=== PATIENT | female | born 1980 | race Caucasian/White ===

== ENCOUNTER 2019-02-18 13:58 | Emergency (ER) | payer OTHER, SELFPAY ==
[2019-02-18 14:01] VITALS: BP 106/82; PULSE 135; RESP 16; O2SAT 97
--- NOTE | 2019-02-18 14:17 | ED_ITS ---
HPI - Nausea/Vomiting/Diarrhea General Chief complaint: Nausea/Vomiting/Diarrhea Stated complaint: UNABLE TO STOP VOMITING Time Seen by Provider: 02/18/19 14:08 Source: patient Mode of arrival: Ambulatory Limitations: no limitations History of Present Illness HPI Narrative: Patient is a 38-year-old female with history of celiac disease presenting with vomiting and diarrhea ongoing since 8:30 last night. She has b een unable to hold anything down. She may has had 1 episode of bright red blood per rectum but typically it's not bloody she is not vomiting blood. She does have some abdominal cramping. She feels dizzy and lightheaded when she stands up. She is noted be tachycardic in the ED. she is not febrile no other sick contacts. MD complaint: nausea, vomiting and diarrhea Onset (ago): hour(s) Description of Vomiting: watery Description of Diarrhea: watery Associated Abdominal Pain: Yes Location of pain: diffuse Related Data Home Medications Medication Instructions Recorded Confirmed Vitamin D3 1 cap PO DAILY 02/18/19 02/18/19 Previous Rx's Medication Instructions Recorded ondansetron 4 mg PO Q8H PRN #10 tab 02/18/19 Allergies Allergy/AdvReac Type Severity Reaction Status Date / Time No Known Drug Allergies Allergy Verified 02/18/19 14:17 Review of Systems Review of Systems Narrative: GENERAL: Denies chills, fatigue, malaise, fever, sweats, travel HEENT: Denies sinus pain, ear pain, sore throat, difficulty swallowing, neck pain RESPIRATORY: Denies dyspnea, cough, wheezing, hemoptysis, sputum. CARDIOVASCULAR:+ dizzy Denies chest pain, palpitations, orthopnea, edema GASTROINTESTINAL: See HPI : Denies dysuria, frequency, incontinence, hematuria, urinary retention, flank pain. MUSCULOSKELETAL: Denies weakness, joint pain, or bony pain SKIN: No rash, no erythema, no pruritus NEUROLOGIC: Denies weakness, dizziness, headache, numbness, change in speech, confusion PSYCHIATRIC: No concerning psychosocial issues. 12 point review of systems is negative except for those stated above and HPI Patient History Medical History Celiac disease (Acute) Social History Smoking Status: Never smoker Smoking Status: Never smoker Exam Initial Vital Signs Initial Vital Signs: Vital Signs Pulse Rate 135 H 02/18/19 14:01 Respiratory Rate 16 02/18/19 14:01 Blood Pressure 106/82 02/18/19 14:01 Pulse Oximetry 97 02/18/19 14:01 GENERAL: Well-appearing, well-nourished and in no acute distress. HEENT: Head atraumatic,EOMI, pupils reactive, face symmetric, dry mucous membranes CARDIOVASCULAR: Tachycardia, regular rhythm no murmur RESPIRATORY: Breath sounds equal bilaterally, no wheezes rales or rhonchi. ABDOMEN: Soft, diffuse tenderness, no guarding no rebound no localization EXTREMITIES: Normal range of motion, no clubbing or edema. Neurovascularly intact NEUROLOGICAL: Alert and oriented x4.Normal gait and speech. Cranial nerves II through XII grossly intact. SKIN: Warm, dry, no laceration, no petechiae, no rashes or lesions. Course Orders Ordered: ED Orders 02/18/19 14:10 Complete Blood Count AUTO DIFF Stat Comprehensive Metabolic Panel Stat Lipase Stat Partial Thromboplastin Time Stat Prothrombin Time INR Stat 02/18/19 14:16 Flu test [Influenza A & B (PCR)] Stat 02/18/19 15:52 EKG-12 Lead Stat Discontinued Medications Sodium Chloride (Normal Saline 0.9%) 1,000 mls @ 1,000 mls/hr IV BOLUS ONE Stop: 02/18/19 15:13 Last Infusion: 02/18/19 15:24 Dose: 0 mls/hr Documented by: Admin: 02/18/19 14:18 Dose: 1,000 mls/hr Documented by: JASPER Ketorolac Tromethamine (Toradol) 30 mg IV NOW ONE Stop: 02/18/19 14:42 Last Admin: 02/18/19 14:46 Dose: 30 mg Documented by: JASPER Ondansetron HCl (Zofran) 4 mg IV NOW ONE Stop: 02/18/19 14:19 Last Admin: 02/18/19 14:22 Dose: 4 mg Documented by: JASPER Pantoprazole Sodium (Protonix) 40 mg IV NOW ONE Stop: 02/18/19 14:42 Last Admin: 02/18/19 14:46 Dose: 40 mg Documented by: JASPER Vital Signs Vital signs: Vital Signs - 8 hr 02/18/19 14:01 02/18/19 14:37 Pulse Rate 135 H 114 H Respiratory Rate 16 14 Blood Pressure 106/82 Blood Pressure [Right Arm] 100/77 Pulse Oximetry 97 100 MDM - Nausea/Vomiting/Diarrhea Lab Data Attestation: I reviewed the patient's lab results. Result diagrams: 02/18/19 14:10 02/18/19 14:10 Labs: Lab Results 02/18/19 02/18/19 02/18/19 Range/Units 14:10 14:10 14:10 WBC 10.9 (4.5-11.0) X10^3/uL RBC 5.11 (4.0-5.2) X10^6/uL Hgb 15.8 (12.0-16.0) g/dL Hct 44.8 (36-46) % MCV 87.7 (80-100) fL MCH 31.0 (26-34) PG MCHC 35.3 (30-36) % RDW 12.9 (11.6-14.8) % Plt Count 234 (150-400) X10^3/uL Neut % (Auto) 89.8 H (50-75) % Lymph % (Auto) 5.6 L (25-40) % [place] % (Auto) 4.4 (3-14) % Eos % (Auto) 0.0 L (2-4) % Baso % (Auto) 0.2 (0-2) % Neut # (Auto) 9800 H (4401-5016) /uL Lymph # (Auto) 600 L (2409-6008) /uL [place] # (Auto) 500 (0-900) /uL Eos # (Auto) 0 (0-450) /uL Baso # (Auto) 0 (0-100) /uL PT 14.1 H (10.1-12.7) SECONDS INR 1.2 (0.9-1.3) APTT 28 (26.4-36.2) SECONDS Sodium 137 (137-145) mmol/L Potassium 3.7 (3.4-5.1) mmol/L Chloride 103 (98-107) mmol/L Carbon Dioxide 20 L (22-32) mmol/L BUN 13 (7-17) mg/dL Creatinine 0.90 (0.52-1.04) mg/dL Estimated GFR > 60.0 (>60) mL/min BUN/Creatinine Ratio 14.4 (6-22) Glucose 127 H (70-100) mg/dL Calcium 8.7 (8.4-10.2) mg/dL Total Bilirubin 1.2 (0.2-1.3) mg/dL AST 29 (14-36) IU/L ALT 26 (<35) IU/L Alkaline Phosphatase 43 (38-126) U/L Total Protein 8.2 (6.3-8.2) g/dL Albumin 4.9 (3.5-5.0) g/dL Globulin 3.3 (1.7-4.1) g/dL Albumin/Globulin Ratio 1.5 (1.0-2.8) Lipase 43 (23-300) U/L Influenza A (RT-PCR) (NEGATIVE) Influenza B (RT-PCR) (NEGATIVE) 02/18/19 Range/Units 14:16 WBC (4.5-11.0) X10^3/uL RBC (4.0-5.2) X10^6/uL Hgb (12.0-16.0) g/dL Hct (36-46) % MCV (80-100) fL MCH (26-34) PG MCHC (30-36) % RDW (11.6-14.8) % Plt Count (150-400) X10^3/uL Neut % (Auto) (50-75) % Lymph % (Auto) (25-40) % [place] % (Auto) (3-14) % Eos % (Auto) (2-4) % Baso % (Auto) (0-2) % Neut # (Auto) (3979-2216) /uL Lymph # (Auto) (2399-6501) /uL [place] # (Auto) (0-900) /uL Eos # (Auto) (0-450) /uL Baso # (Auto) (0-100) /uL PT (10.1-12.7) SECONDS INR (0.9-1.3) APTT (26.4-36.2) SECONDS Sodium (137-145) mmol/L Potassium (3.4-5.1) mmol/L Chloride (98-107) mmol/L Carbon Dioxide (22-32) mmol/L BUN (7-17) mg/dL Creatinine (0.52-1.04) mg/dL Estimated GFR (>60) mL/min BUN/Creatinine Ratio (6-22) Glucose (70-100) mg/dL Calcium (8.4-10.2) mg/dL Total Bilirubin (0.2-1.3) mg/dL AST (14-36) IU/L ALT (<35) IU/L Alkaline Phosphatase (38-126) U/L Total Protein (6.3-8.2) g/dL Albumin (3.5-5.0) g/dL Globulin (1.7-4.1) g/dL Albumin/Globulin Ratio (1.0-2.8) Lipase (23-300) U/L Influenza A (RT-PCR) Flu a negative (NEGATIVE) Influenza B (RT-PCR) Flu b negative (NEGATIVE) MDM Narrative Medical decision making narrative: Patient's heart rate decreased to 98 she is tolerating oral fluids overall appears well not significantly dehydrated. This is likely gastroenteritis. At this time I've educated her on oral rehydration. Discharge Plan Departure Patient Disposition: Home Clinical Impression: Gastroenteritis Discharge Date/Time: 02/18/19 16:18 Instructions: DI for Viral Gastroenteritis -- Adult Activity Restrictions/Additional Instructions: 1) You have been diagnosed with gastroenteritis 2) What to do: Drink frequent but small amounts of fluids. I recommend Gatorade or a Gatorade-like product, as it has small amounts of sugar and salts that improve fluid retention. 3) Take medications as directed Zofran 4 mg every 8 hours if needed for nausea or vomiting 4) Follow up with your primary care provider in 2-3 days [and follow up with ortho, urology etc] 5) Return to ER if you should have any new or worsening symptoms such as, unable to hold down fluids despite use of anti-nausea medications and the small volume oral rehydration strategy. Prescriptions: New ondansetron 4 mg tablet,disintegrating 4 mg PO Q8H PRN (Reason: nausea and vomiting) Qty: 10 RF: 0 No Action Vitamin D3 1 cap PO DAILY RF: 0
[2019-02-18] MEDS: SODIUM CHLORIDE 0.9% 1,000 ML 1000 ML IV (14:18)
[2019-02-18 14:20] LABS: Add Manual Diff / Slide Review NO; Basophils Absolute Auto 0 /uL (0-100); Basophils Percent Auto 0.2 % (0-2); Eosinophils Absolute Auto 0 /uL (0-450); Hematocrit 44.8 % (36-46); Hemoglobin 15.8 g/dL (12.0-16.0); Lymphocytes Absolute Auto 600 /uL (1100-4500); Lymphocytes Percent Auto 5.6 % (25-40); Mean Corpuscular HGB Conc 35.3 % (30-36); Mean Corpuscular Volume 87.7 fL (80-100); Monocytes Absolute Auto 500 /uL (0-900); Monocytes Percent Auto 4.4 % (3-14); Neutrophils Absolute Auto 9800 /uL (1500-7000); Neutrophils Percent Auto 89.8 % (50-75); Platelet Count 234 X10^3/uL (150-400); Red Blood Cell Count 5.11 X10^6/uL (4.0-5.2); Red Cell Distribution Width 12.9 % (11.6-14.8); White Blood Cell Count 10.9 X10^3/uL (4.5-11.0)
[2019-02-18] MEDS: ONDANSETRON 4 MG/2 ML INJ IV (14:22)
[2019-02-18 14:23] LABS: INR 1.2 (0.9-1.3); Prothrombin Time 14.1 SECONDS (10.1-12.7)
[2019-02-18 14:26] LABS: PTT Partial Thromboplastin Tim 28 SECONDS (26.4-36.2)
--- NOTE | 2019-02-18 14:29 | PC.NURSE ---
pt reports last sandie she ate a sandwich shortly after started having vomiting and diarrhea. about 12 bouts of each.
[2019-02-18 14:31] LABS: Alanine Aminotransferase 26 IU/L (<35); Albumin 4.9 g/dL (3.5-5.0); Albumin Globulin Ratio 1.5 (1.0-2.8); Alkaline Phosphatase 43 U/L (38-126); Aspartate Aminotransferase 29 IU/L (14-36); BUN Creatinine Ratio 14.4 (6-22); Bilirubin Total 1.2 mg/dL (0.2-1.3); Blood Urea Nitrogen 13 mg/dL (7-17); Calcium 8.7 mg/dL (8.4-10.2); Carbon Dioxide 20 mmol/L (22-32); Chloride 103 mmol/L (98-107); Estimated Glomerular Filt Rate > 60.0 mL/min (>60); Globulin 3.3 g/dL (1.7-4.1); Glucose 127 mg/dL (70-100); HEMOLYSIS < 15 (0-50); Lipase 43 U/L (23-300); Potassium 3.7 mmol/L (3.4-5.1); Sodium 137 mmol/L (137-145); Total Protein 8.2 g/dL (6.3-8.2)
[2019-02-18 14:37] VITALS: BP 100/77; PULSE 114; RESP 14; O2SAT 100
[2019-02-18] MEDS: KETOROLAC 60 MG/2 ML VIAL 30 MG IV (14:46)
[2019-02-18] MEDS: PANTOPRAZOLE 40 MG VIAL IV (14:46)
[2019-02-18 14:57] LABS: Influenza A - CEPHEID Flu A NEGATIVE (NEGATIVE); Influenza B - CEPHEID Flu B NEGATIVE (NEGATIVE)
== END 2019-02-18 16:18 | disposition home or self-care (01) ==
PROVIDERS: Emergency Provider Emergency Medicine
DX: K52.9 Noninfective gastroenteritis and colitis, unspecified (principal); R00.0 Tachycardia, unspecified; K90.0 Celiac disease
CPT/HCPCS: 36415; 80053; 83690; 85025; 85610; 85730; 87502; 93005; 93010; 96361; 96374; 96375; 99281; 99284; C9113; J1885; J2405

== ENCOUNTER 2020-02-20 19:04 | Emergency (ER) | payer OTHER, SELFPAY ==
[2020-02-20] VITALS (9 sets, daily range): BP systolic 97–118; BP diastolic 59–77; PULSE 71–88; RESP 11–18; TEMP 37.2; O2SAT 97–99; BMI 33.0
--- NOTE | 2020-02-20 | DI.CT.S_ITS ---
PROCEDURE: CT ABDOMEN PELVIS W CON INDICATIONS: RLQ PAIN TECHNIQUE: After the administration of intravenous contrast, 5 mm thick sections acquired from the diaphragm to the symphysis. 5 mm coronal and sagittal reformats were acquired. For radiation dose reduction, the following was used: automated exposure control, adjustment of mA and/or kV according to patient size. COMPARISON: [facility], CR, XR CHEST 1V, 02/20/2020, 19:52. [facility], CT, CT ANGIO CHEST PE PROTOCOL, 02/20/2020, 21:03. FINDINGS: Image quality: Excellent. ABDOMEN: Lung bases: There is a small subpleural nodular ground-glass opacity in the anterior right middle lobe. Heart size is normal. Solid organs: Evaluation of the liver demonstrates no focal hepatic lesions. The gallbladder appears within normal limits without calcified gallstones. Biliary system is non-dilated. Pancreas enhances normally. No peripancreatic fat stranding or fluid collections. No pancreatic duct dilatation. The spleen is normal in size. No adrenal nodules. Kidneys demonstrate no hydronephrosis. Peritoneum and bowel: Bowel loops demonstrate normal wall thickness and caliber. The appendix is normal in appearance. There is colonic diverticulosis without acute diverticulitis. No free fluid or air. Nodes and vessels: No retroperitoneal or mesenteric adenopathy by size criteria. Aorta and inferior vena cava are normal in size. Miscellaneous: No ventral hernias. PELVIS: Genitourinary: Bladder wall thickness is normal. There is mild enlargement of the ovaries bilaterally. The uterus is surgically absent. Miscellaneous: No inguinal hernias or adenopathy. Bones: No suspicious bony lesions. No vertebral body compression fractures. IMPRESSION: 1. No definite acute intra-abdominal abnormality. Specifically, no evidence of acute appendicitis. 2. Colonic diverticulosis without acute diverticulitis. 3. Mild enlargement of the ovaries bilaterally. Findings are nonspecific and of indeterminate clinical significance. Recommend correlation clinically. 4. Small nonspecific ground-glass nodule within the anterior right middle lobe suggestive of a mild infectious or inflammatory process. Dictated by: Geo Navas M.D. on 02/20/2020 at 21:56 Approved by: Geo Navas M.D. on 02/20/2020 at 21:59
--- NOTE | 2020-02-20 19:20 | DI.RAD.S_ITS ---
PROCEDURE: XR CHEST 1V INDICATIONS: covid symptoms TECHNIQUE: One view of the chest was acquired. COMPARISON: None. FINDINGS: Surgical changes and devices: None. Lungs and pleura: Lungs are clear. No pleural effusions or pneumothorax. Mediastinum: Mediastinal contours appear normal. Heart size is normal. Bones and chest wall: No suspicious bony lesions. Overlying soft tissues appear unremarkable. IMPRESSION: 1. No acute cardiopulmonary disease. Dictated by: Geo Navas M.D. on 02/20/2020 at 20:10 Approved by: Geo Navas M.D. on 02/20/2020 at 20:10
[2020-02-20 19:45] LABS: COVID19 -Nasal RAPID POSITIVE (Negative)
[2020-02-20] MEDS: SODIUM CHLORIDE 0.9% 500 ML 1000 ML IV ×2 (20:01→20:59)
[2020-02-20] MEDS: KETOROLAC 60 MG/2 ML VIAL 15 MG IV (20:02)
[2020-02-20] MEDS: ONDANSETRON 4 MG/2 ML INJ IV (20:02)
[2020-02-20] MEDS: ACETAMINOPHEN 325 MG TABLET 650 MG PO (20:02)
[2020-02-20 20:06] LABS: Hematocrit 41.5 % (36-46); Hemoglobin 13.9 g/dL (12.0-16.0); Red Blood Cell Count 4.59 X10^6/uL (4.0-5.2)
[2020-02-20 20:07] LABS: Add Manual Diff / Slide Review NO; Basophils Absolute Auto 0 /uL (0-100); Basophils Percent Auto 0.6 % (0-2); Eosinophils Absolute Auto 0 /uL (0-450); Eosinophils Percent Auto 0.5 % (2-4); Lymphocytes Absolute Auto 1500 /uL (1100-4500); Mean Corpuscular HGB Conc 33.5 % (30-36); Mean Corpuscular Hemoglobin 30.3 PG (26-34); Mean Corpuscular Volume 90.4 fL (80-100); Monocytes Absolute Auto 700 /uL (0-900); Monocytes Percent Auto 18.1 % (3-14); Neutrophils Absolute Auto 1700 /uL (1500-7000); Neutrophils Percent Auto 42.8 % (50-75); Platelet Count 213 X10^3/uL (150-400); Red Cell Distribution Width 12.9 % (11.6-14.8)
[2020-02-20 20:13] LABS: Lactate (Lactic Acid) 0.7 mmol/L (0.7-2.1)
[2020-02-20] MEDS: ALBUTEROL HFA 200 PUFF/18 GM INH (COVID POS/VENT PTS) INH (20:15)
[2020-02-20 20:19] LABS: Alanine Aminotransferase 30 IU/L (<35); Albumin 4.5 g/dL (3.5-5.0); Albumin Globulin Ratio 1.3 (1.0-2.8); Alkaline Phosphatase 43 U/L (38-126); Aspartate Aminotransferase 40 IU/L (14-36); Bilirubin Total 0.6 mg/dL (0.2-1.3); Blood Urea Nitrogen 11 mg/dL (7-17); Calcium 9.1 mg/dL (8.4-10.2); Carbon Dioxide 24 mmol/L (22-32); Chloride 108 mmol/L (98-107); Estimated Glomerular Filt Rate > 60.0 mL/min (>60); Globulin 3.4 g/dL (1.7-4.1); Glucose 99 mg/dL (70-100); HEMOLYSIS < 15 (0-50); Lactate Dehydrogenase 472 U/L (313-618); Sodium 139 mmol/L (137-145); Total Protein 7.9 g/dL (6.3-8.2)
[2020-02-20 20:22] LABS: C-Reactive Protein Quant 0.7 mg/dL (<1.0); Creatine Kinase 78 U/L (30-135)
[2020-02-20 20:23] LABS: D Dimer 423 ng/mL (<230)
[2020-02-20 20:32] LABS: Troponin I < 0.012 ng/mL (0.01-0.034)
[2020-02-20 20:34] LABS: Procalcitonin < 0.05 ng/mL (<0.5)
--- NOTE | 2020-02-20 20:49 | DI.CT.S_ITS ---
PROCEDURE: CT ANGIO CHEST PE PROTOCOL INDICATIONS: pleuric chest pain, RLQ, Covid +, elevated D dimer TECHNIQUE: After the administration of intravenous contrast, 2 mm thick sections acquired from the pulmonary apices to the posterior costophrenic angles. 3-dimensional maximum intensity projection (MIP) coronal and sagittal reformats were then acquired through the thorax. For radiation dose reduction, the following was used: automated exposure control, adjustment of mA and/or kV according to patient size. COMPARISON: [facility], CR, XR CHEST 1V, 02/20/2020, 19:52. [facility], CT, CT ABDOMEN PELVIS W CON, 02/20/2020, 21:03. FINDINGS: Image quality: Excellent. Pulmonary arteries: Pulmonary arteries are normal in size, and demonstrate no intraluminal filling defects to suggest central pulmonary embolism. Lungs and pleura: There is mild dependent atelectasis. There is a small subpleural ground-glass nodular opacity anteriorly in the right middle lobe measuring approximately 0.6 cm. No other definite acute airspace opacities. No pleural effusions or pneumothorax. Central and peripheral airways are patent. Mediastinum: Heart size is normal, without pericardial effusion. No mediastinal or hilar adenopathy. Thoracic aorta is normal in caliber and enhancement. Esophagus is normal in caliber, without hiatal hernia. Bones and chest wall: No suspicious bony lesions. Ribs and thoracic spine appear intact throughout. No axillary or supraclavicular adenopathy. Abdomen: Visualized upper abdominal solid organs appear normal in the early arterial phase of enhancement. IMPRESSION: 1. No evidence of pulmonary embolism. 2. Small subpleural nodular ground-glass opacity in the anterior right middle lobe. The findings are nonspecific but are suggestive of infectious or inflammatory process such as developing viral pneumonia given patient's clinical history. Dictated by: Geo Navas M.D. on 02/20/2020 at 21:49 Approved by: Geo Navas M.D. on 02/20/2020 at 21:53
--- NOTE | 2020-02-20 20:54 | ED_ITS ---
HPI - Chest Pain <BRYAN Mccormick - Last Filed: 02/20/20 21:20> General Chief Complaint: Chest Pain Stated Complaint: thinks she has COVID, chills,chest pain,diarrhea Time Seen by Provider: 02/20/20 19:20 Source: patient Mode of arrival: Ambulatory Limitations: no limitations History of Present Illness HPI narrative: This is a 39-year-old female, nonsmoker, who has no contributory medical history presents to ED with chief complain of feeling fatigue, pleuritic right chest discomfort, body aches, chills, subjective fever, 1 episode of nonbloody diarrhea, productive cough, headache, sore throat, nausea which started yesterday and right lower quadrant pain today. Patient denies nuchal rigidity or unusual rashes. She reports right lower quadrant pain increases with coughing. Patient denies known exposure to COVID illness but states her young daughter started to have sore throat symptoms today. She is not currently working. Patient reports anorexia and has not been eating or drinking today. She denies loss of taste or smell. Patient denies urinary symptoms. Patient denies history of recent surgery, prolonged bed rest, using estrogen, history of DVT or other blood clots, or history of tumor. Patient is concerned for COVID infection with her symptoms. Patient has taken Tylenol for her symptoms and last dose was taking this morning. [facility] [place]. Related Data Home Medications Medication Instructions Recorded Confirmed Tylenol 02/20/20 Allergies Allergy/AdvReac Type Severity Reaction Status Date / Time gluten Allergy Verified 02/20/20 19:21 Review of Systems <BRYAN Mccormick - Last Filed: 02/20/20 21:20> Review of Systems Narrative: General: See HPI HEENT: Denies sinus pain, ear pain, sore throat, difficulty swallowing, dizziness. Respiratory: Denies (+) shortness of breath, (+) productive cough, wheezing, hemoptysis, sputum. Cardiovascular: Denies (+) right-sided pleuritic chest pain, palpitations, ort hopnea, edema. Gastrointestinal: See HPI : Denies dysuria, frequency, incontinence, hematuria, urinary retention. Musculoskeletal: See HPI Skin: Denies rash, skin lesions, or other. Neurologic: Denies weakness, (+) headache, numbness, change in speech, confusion, seizures, incoordination. Psychiatric: No concerning psychosocial issues. 12-point review of systems is negative except for those stated above. Patient History <BRYAN Mccormick - Last Filed: 02/20/20 21:20> Medical History (Updated 02/20/20 @ 22:16 by Faustino Zhao MD) Celiac disease Surgical History (Updated 02/20/20 @ 20:59 by BRYAN Mccormick) History of hysterectomy Social History (Updated 02/20/20 @ 21:00 by BRYAN Mccormick) Smoking Status: Never smoker alcohol intake: current substance use type: does not use Smoking Status: Never smoker Exam <BRYAN Mccormick - Last Filed: 02/20/20 21:20> Narrative Exam Narrative: GEN: Alert, oriented x 3, well nourished, and in no acute distress but appears to be fatigued. Head: Normal cephalic, atraumatic. No scalp or temporal tenderness, palpable mass or rash. EYES: Pupils are equal, round, and reactive to light and accommodation. Extraocular muscles are intact bilaterally. There is no subconjunctival he morrhage, exudate and sclera non-icteric. ENT: Hearing grossly intact. Nose without bleeding, purulent discharge or deviation. Facial sinuses nontender to palpate. Mucous membrane moist, no mucosal lesion. Throat without erythema, tonsillar hypertrophy or exudate. Uvula in midline, airway patent. Neck: Trachea in midline. No JVD, non-tender without lymphadenopathy. No masses or thyroid megaly. Supple, non-tender and no meningeal signs. CARDIAC: Normal regular rate and rhythm without murmurs, gallops, or rubs. No chest wall tenderness. No peripheral edema, cyanosis or pallor. Capillary refill is less than 2 seconds. RESPIRATORY: Lungs are clear but decreased to auscultate bilaterally. Occasional cough. No wheezes, rales, or rhonchi. No stridor, respiratory distress, increase work of breathing, or accessary muscle used. ABD: Abdomen soft and non-distended. Right lower quadrant tender to palpate with rebound tenderness. Mild discomfort in epigastric region to palpate. Bowel sounds are normal in all 4 quadrants. There is no palpable masses or organomegaly. EXT: Full painless ROM of all extremities with no loss of sensation, strength, effusion or edema. SKIN: Warm, dry, normal color for patient. No erythema, lesions or rash over visible areas. BACK: Nontender without deformity or crepitance. No flank tenderness. NEUROLOGICAL: Alert and oriented to place, time and person. Sensation and motor function intact bilaterally. No facial droops, dysphasia. PSYCHIATRIC: Good judgement and reason, without hallucinations, abnormal affect or abnormal behaviors during the examination. Patient is not suicidal. Initial Vital Signs Initial Vital Signs: Vital Signs Temperature 99.0 F 02/20/20 19:15 Pulse Rate 88 02/20/20 19:15 Respiratory Rate 17 02/20/20 19:15 Blood Pressure 118/76 02/20/20 19:15 Pulse Oximetry 97 02/20/20 19:15 <Faustino Zhao MD - Last Filed: 02/20/20 23:55> Initial Vital Signs Initial Vital Signs: Vital Signs Temperature 99.0 F 02/20/20 19:15 Pulse Rate 88 02/20/20 19:15 Respiratory Rate 17 02/20/20 19:15 Blood Pressure 118/76 02/20/20 19:15 Pulse Oximetry 97 02/20/20 19:15 Scores <Seth BRYAN Prado - Last Filed: 02/20/20 21:20> GCS Sissy coma scale eye opening: Spontaneous [place] coma scale verbal response: Orientated [place] coma scale motor response: Obey commands [place] coma scale total score: 15 HEART Score Heart Score history: Slightly Suspicious Heart Score EKG: Normal Heart Score Age: < 45 years old Heart Score risk factors: No known risk factors Heart Score troponin: < or = to normal limit Heart Score Total: 0 qSOFA Altered Mental Status (GCS <15): No Respiratory rate greater than/equal to 22: No Systolic blood pressure less than or equal to 100: No qSOFA Total: 0 0-1 Not High Risk 1-3 High risk <Faustino Zhao MD - Last Filed: 02/20/20 23:55> HEART Score Heart Score history: Slightly Suspicious Heart Score EKG: Normal Heart Score Age: < 45 years old Heart Score risk factors: No known risk factors Heart Score troponin: < or = to normal limit Heart Score Total: 0 Course <Seth BRYAN Prado - Last Filed: 02/20/20 21:20> Orders Ordered: ED Orders 02/20/20 19:15 COVID19 Stat 02/20/20 19:20 XR chest 1V Stat C-Reactive Protein Quant Stat Complete Blood Count AUTO DIFF Stat Comprehensive Metabolic Panel Stat D Dimer Stat Ferritin Stat Lactate (Lactic Acid) Stat Lactate Dehydrogenase Stat Procalcitonin Stat Troponin & CK Cardiac Panel Stat EKG-12 Lead Stat 02/20/20 20:24 Blood Culture Stat 02/20/20 20:49 CT angio chest PE protocol Stat Discontinued Medications Acetaminophen (Acetaminophen 325 Mg Tablet) 650 mg PO NOW ONE Stop: 02/20/20 19:55 Last Admin: 02/20/20 20:02 Dose: 650 mg Documented by: MARTINA Albuterol (Albuterol Hfa 200 Puff/18 Gm Inh (Covid Pos/Vent Pts)) 2 puff INH NOW ONE Stop: 02/20/20 19:58 Last Admin: 02/20/20 20:15 Dose: 2 puff Documented by: [email or web address] Sodium Chloride (Normal Saline 0.9%) 500 mls @ 1,000 mls/hr IV BOLUS ONE Stop: 02/20/20 20:23 Last Infusion: 02/20/20 20:59 Dose: 0 mls/hr Documented by: Admin: 02/20/20 20:01 Dose: 1,000 mls/hr Documented by: RMARTIN Sodium Chloride (Normal Saline 0.9%) 500 mls @ 1,000 mls/hr IV BOLUS ONE Stop: 02/20/20 21:23 Last Infusion: 02/20/20 22:20 Dose: 0 mls/hr Documented by: Admin: 02/20/20 20:59 Dose: 1,000 mls/hr Documented by: RMARTIN Ketorolac Tromethamine (Ketorolac 60 Mg/2 Ml Vial) 15 mg IV NOW ONE Stop: 02/20/20 19:55 Last Admin: 02/20/20 20:02 Dose: 15 mg Documented by: MARTINA Ondansetron HCl (Ondansetron 4 Mg/2 Ml Inj) 4 mg IV NOW ONE Stop: 02/20/20 19:55 Last Admin: 02/20/20 20:02 Dose: 4 mg Documented by: RMARTIN Reevaluation(s) Reevaluation #1: Patient reports her symptoms improved. Findings discussed with patient and informed the patient on positive for Covid test but other labs are unremarkable except elevated D-dimer. Patient informed will follow with CT of chest, abdomen, pelvis to rule out pulmonary embolism and acute inflammatory/infectious abdominal disease including appendicitis. Patient also informed that Dr. Zhao will continue with her care and she verbalized understanding. Time: 21:05 Vital Signs Vital signs: Vital Signs - 8 hr 02/20/20 19:15 02/20/20 19:45 02/20/20 20:00 Temperature 99.0 F Pulse Rate 88 80 82 Respiratory Rate 17 11 L 14 Blood Pressure 118/76 107/77 Pulse Oximetry 97 97 97 02/20/20 20:16 02/20/20 20:30 02/20/20 21:00 Temperature Pulse Rate 80 78 76 Respiratory Rate 18 14 15 Blood Pressure 103/59 L 97/62 Pulse Oximetry 98 98 02/20/20 21:30 02/20/20 21:31 02/20/20 22:00 Temperature Pulse Rate 74 75 71 Respiratory Rate 18 16 15 Blood Pressure 106/65 112/68 Pulse Oximetry 97 99 98 <Faustino Zhao MD - Last Filed: 02/20/20 23:55> Orders Ordered: ED Orders 02/20/20 19:15 COVID19 Stat 02/20/20 19:20 XR chest 1V Stat C-Reactive Protein Quant Stat Complete Blood Count AUTO DIFF Stat Comprehensive Metabolic Panel Stat D Dimer Stat Ferritin Stat Lactate (Lactic Acid) Stat Lactate Dehydrogenase Stat Procalcitonin Stat Troponin & CK Cardiac Panel Stat EKG-12 Lead Stat 02/20/20 20:24 Blood Culture Stat 02/20/20 20:49 CT angio chest PE protocol Stat Discontinued Medications Acetaminophen (Acetaminophen 325 Mg Tablet) 650 mg PO NOW ONE Stop: 02/20/20 19:55 Last Admin: 02/20/20 20:02 Dose: 650 mg Documented by: RMARTIN Albuterol (Albuterol Hfa 200 Puff/18 Gm Inh (Covid Pos/Vent Pts)) 2 puff INH NOW ONE Stop: 02/20/20 19:58 Last Admin: 02/20/20 20:15 Dose: 2 puff Documented by: CTR.[email or web address] Sodium Chloride (Normal Saline 0.9%) 500 mls @ 1,000 mls/hr IV BOLUS ONE Stop: 02/20/20 20:23 Last Infusion: 02/20/20 20:59 Dose: 0 mls/hr Documented by: Admin: 02/20/20 20:01 Dose: 1,000 mls/hr Documented by: MARTINA Sodium Chloride (Normal Saline 0.9%) 500 mls @ 1,000 mls/hr IV BOLUS ONE Stop: 02/20/20 21:23 Last Infusion: 02/20/20 22:20 Dose: 0 mls/hr Documented by: Admin: 02/20/20 20:59 Dose: 1,000 mls/hr Documented by: MARTINA Ketorolac Tromethamine (Ketorolac 60 Mg/2 Ml Vial) 15 mg IV NOW ONE Stop: 02/20/20 19:55 Last Admin: 02/20/20 20:02 Dose: 15 mg Documented by: MARTINA Ondansetron HCl (Ondansetron 4 Mg/2 Ml Inj) 4 mg IV NOW ONE Stop: 02/20/20 19:55 Last Admin: 02/20/20 20:02 Dose: 4 mg Documented by: MARTINA Reevaluation(s) Reevaluation #1: Pain is controlled. Reviewed results with patient. She agrees with treatment plan and discharge and follow-up with primary care Time: 22:04 Vital Signs Vital signs: Vital Signs - 8 hr 02/20/20 19:15 02/20/20 19:45 02/20/20 20:00 Temperature 99.0 F Pulse Rate 88 80 82 Respiratory Rate 17 11 L 14 Blood Pressure 118/76 107/77 Pulse Oximetry 97 97 97 02/20/20 20:16 02/20/20 20:30 02/20/20 21:00 Temperature Pulse Rate 80 78 76 Respiratory Rate 18 14 15 Blood Pressure 103/59 L 97/62 Pulse Oximetry 98 98 02/20/20 21:30 02/20/20 21:31 02/20/20 22:00 Temperature Pulse Rate 74 75 71 Respiratory Rate 18 16 15 Blood Pressure 106/65 112/68 Pulse Oximetry 97 99 98 MDM - Chest Pain <Seth BRYAN Prado - Last Filed: 02/20/20 21:20> Differential Diagnosis Differential diagnosis: Likely atypical chest pain and other (Covid infection, Viral illness, pneumonia, pulmonary embolism, abdominal muscle strain, appendicitis, dehydration) Medical Records Data Attestation: I reviewed the patient's medical records. Lab Data Attestation: I reviewed the patient's lab results. Result diagrams: 02/20/20 19:20 02/20/20 19:20 Labs: Lab Results 02/20/20 02/20/20 02/20/20 Range/Units 19:15 19:20 19:20 WBC 4.0 L (4.5-11.0) X10^3/uL RBC 4.59 (4.0-5.2) X10^6/uL Hgb 13.9 (12.0-16.0) g/dL Hct 41.5 (36-46) % MCV 90.4 (80-100) fL MCH 30.3 (26-34) PG MCHC 33.5 (30-36) % RDW 12.9 (11.6-14.8) % Plt Count 213 (150-400) X10^3/uL Neut % (Auto) 42.8 L (50-75) % Lymph % (Auto) 38.0 (25-40) % [place] % (Auto) 18.1 H (3-14) % Eos % (Auto) 0.5 L (2-4) % Baso % (Auto) 0.6 (0-2) % Neut # (Auto) 1700 (3526-4078) /uL Lymph # (Auto) 1500 (0345-7361) /uL [place] # (Auto) 700 (0-900) /uL Eos # (Auto) 0 (0-450) /uL Baso # (Auto) 0 (0-100) /uL D-Dimer (<230) ng/mL Sodium (137-145) mmol/L Potassium (3.4-5.1) mmol/L Chloride (98-107) mmol/L Carbon Dioxide (22-32) mmol/L BUN (7-17) mg/dL Creatinine (0.52-1.04) mg/dL Estimated GFR (>60) mL/min BUN/Creatinine Ratio (6-22) Glucose (70-100) mg/dL Lactate (0.7-2.1) mmol/L Calcium (8.4-10.2) mg/dL Ferritin (6-137) ng/mL Total Bilirubin (0.2-1.3) mg/dL AST (14-36) IU/L ALT (<35) IU/L Alkaline Phosphatase (38-126) U/L Lactate Dehydrogenase (313-618) U/L Total Creatine Kinase (30-135) U/L CK-MB (CK-2) CK-MB (CK-2) Rel Index Troponin I (0.01-0.034) ng/mL C-Reactive Protein (<1.0) mg/dL Total Protein (6.3-8.2) g/dL Albumin (3.5-5.0) g/dL Globulin (1.7-4.1) g/dL Albumin/Globulin Ratio (1.0-2.8) Procalcitonin < 0.05 (<0.5) ng/mL COVID-19 PCR Positive H (Negative) 02/20/20 02/20/20 02/20/20 Range/Units 19:20 19:20 19:20 WBC (4.5-11.0) X10^3/uL RBC (4.0-5.2) X10^6/uL Hgb (12.0-16.0) g/dL Hct (36-46) % MCV (80-100) fL MCH (26-34) PG MCHC (30-36) % RDW (11.6-14.8) % Plt Count (150-400) X10^3/uL Neut % (Auto) (50-75) % Lymph % (Auto) (25-40) % [place] % (Auto) (3-14) % Eos % (Auto) (2-4) % Baso % (Auto) (0-2) % Neut # (Auto) (6756-2925) /uL Lymph # (Auto) (6454-0053) /uL [place] # (Auto) (0-900) /uL Eos # (Auto) (0-450) /uL Baso # (Auto) (0-100) /uL D-Dimer 423 H (<230) ng/mL Sodium 139 (137-145) mmol/L Potassium 4.0 (3.4-5.1) mmol/L Chloride 108 H (98-107) mmol/L Carbon Dioxide 24 (22-32) mmol/L BUN 11 (7-17) mg/dL Creatinine 0.92 (0.52-1.04) mg/dL Estimated GFR > 60.0 (>60) mL/min BUN/Creatinine Ratio 12.0 (6-22) Glucose 99 (70-100) mg/dL Lactate 0.7 (0.7-2.1) mmol/L Calcium 9.1 (8.4-10.2) mg/dL Ferritin (6-137) ng/mL Total Bilirubin 0.6 (0.2-1.3) mg/dL AST 40 H (14-36) IU/L ALT 30 (<35) IU/L Alkaline Phosphatase 43 (38-126) U/L Lactate Dehydrogenase (313-618) U/L Total Creatine Kinase (30-135) U/L CK-MB (CK-2) CK-MB (CK-2) Rel Index Troponin I (0.01-0.034) ng/mL C-Reactive Protein (<1.0) mg/dL Total Protein 7.9 (6.3-8.2) g/dL Albumin 4.5 (3.5-5.0) g/dL Globulin 3.4 (1.7-4.1) g/dL Albumin/Globulin Ratio 1.3 (1.0-2.8) Procalcitonin (<0.5) ng/mL COVID-19 PCR (Negative) 02/20/20 02/20/20 Range/Units 19:20 19:20 WBC (4.5-11.0) X10^3/uL RBC (4.0-5.2) X10^6/uL Hgb (12.0-16.0) g/dL Hct (36-46) % MCV (80-100) fL MCH (26-34) PG MCHC (30-36) % RDW (11.6-14.8) % Plt Count (150-400) X10^3/uL Neut % (Auto) (50-75) % Lymph % (Auto) (25-40) % [place] % (Auto) (3-14) % Eos % (Auto) (2-4) % Baso % (Auto) (0-2) % Neut # (Auto) (0039-9844) /uL Lymph # (Auto) (2677-2467) /uL [place] # (Auto) (0-900) /uL Eos # (Auto) (0-450) /uL Baso # (Auto) (0-100) /uL D-Dimer (<230) ng/mL Sodium (137-145) mmol/L Potassium (3.4-5.1) mmol/L Chloride (98-107) mmol/L Carbon Dioxide (22-32) mmol/L BUN (7-17) mg/dL Creatinine (0.52-1.04) mg/dL Estimated GFR (>60) mL/min BUN/Creatinine Ratio (6-22) Glucose (70-100) mg/dL Lactate (0.7-2.1) mmol/L Calcium (8.4-10.2) mg/dL Ferritin 78 (6-137) ng/mL Total Bilirubin (0.2-1.3) mg/dL AST (14-36) IU/L ALT (<35) IU/L Alkaline Phosphatase (38-126) U/L Lactate Dehydrogenase 472 (313-618) U/L Total Creatine Kinase 78 (30-135) U/L CK-MB (CK-2) TNP CK-MB (CK-2) Rel Index TNP Troponin I < 0.012 (0.01-0.034) ng/mL C-Reactive Protein 0.7 (<1.0) mg/dL Total Protein (6.3-8.2) g/dL Albumin (3.5-5.0) g/dL Globulin (1.7-4.1) g/dL Albumin/Globulin Ratio (1.0-2.8) Procalcitonin (<0.5) ng/mL COVID-19 PCR (Negative) Imaging Data Chest x-ray: Radiologist's Impression: [address] [id number] ReportSigned Patient: Deepak Abrams#: [id number]: 1980Acct:[id number]/Sex: 39 / FDate of Service: 02/20/20Loc: EDAccession Number: [id number] Procedure: XR chest 1V Ordering Provider: Seth Prado PROCEDURE: XR CHEST 1V INDICATIONS: covid symptoms TECHNIQUE: One view of the chest was acquired. COMPARISON: None. FINDINGS: Surgical changes and devices: None. Lungs and pleura: Lungs are clear. No pleural effusions or pneumothorax. Mediastinum: Mediastinal contours appear normal. Heart size is normal. Bones and chest wall: No suspicious bony lesions. Overlying soft tissues appear unremarkable. IMPRESSION: 1. No acute cardiopulmonary disease. Dictated by: Geo Navas M.D. on 02/20/2020 at 20:10 Approved by: Geo Navas M.D. on 02/20/2020 at 20:10 ECG Data Attestation: I personally reviewed and interpreted this ECG as follows: Prior ECG tracings: available for review Interpretation: Sinus rhythm rate at 79. Left dominant axis. MS interval 172, QRS duration 68, QT/QTC 358/412. No acute ST changes. MDM Narrative Medical decision making narrative: This is a 39-year-old female who presents to ED with feeling fatigue, generalized body and headache, subjective fever and chills, pleuritic chest pain, cough, short of breath, nausea and 1 episode of diarrhea. Denies known exposure to COVID but her young daughter started to have sore throat today. Is concerned for COVID infection. Patient does not appears to be toxic but appears to be fatigued. Physical exam appreciated right lower quadrant pain with rebound tenderness. Patient does not have respiratory distress or failure without tachypnea. Room air oxygenation ranging from 97- 100%. Patient is afebrile with within normal limits of vital signs. COVID test is positive. Patient is treated with supportive symptoms management with IV fluid, Zofran, IV Toradol and Tylenol which improved symptoms. RT provided Albuterol inhaler with spacer or chest tightness. Chest x-ray is negative for acute findings. Tests are unremarkable except elevated D-dimer. No leukocytosis. Decreased neutrophil counts. Normal lym phocyte counts. Unremarkable chemistry test with mildly elevated AST of 40 with normal lipase. Cardiac enzymes were negative. Normal procalcitonin, lactate, LDH, and ferritin level. Mildly elevated D-dimer for age adjusted as 423. Concerns for pulmonary embolism and other etiology for acute abdominal inflammation/infection, CT of chest/pelvis/abdomen ordered. Physical findings, HPI, labs, EKG and CXR tests reviewed with Dr. Zhao and signed out for continuation of care. <Faustino Zhao MD - Last Filed: 02/20/20 23:55> Differential Diagnosis Differential diagnosis: Likely stable angina, unstable angina pectoris, atypical chest pain and chest pain Lab Data Attestation: I reviewed the patient's lab results. Labs: Lab Results 02/20/20 02/20/20 02/20/20 Range/Units 19:15 19:20 19:20 WBC 4.0 L (4.5-11.0) X10^3/uL RBC 4.59 (4.0-5.2) X10^6/uL Hgb 13.9 (12.0-16.0) g/dL Hct 41.5 (36-46) % MCV 90.4 (80-100) fL MCH 30.3 (26-34) PG MCHC 33.5 (30-36) % RDW 12.9 (11.6-14.8) % Plt Count 213 (150-400) X10^3/uL Neut % (Auto) 42.8 L (50-75) % Lymph % (Auto) 38.0 (25-40) % [place] % (Auto) 18.1 H (3-14) % Eos % (Auto) 0.5 L (2-4) % Baso % (Auto) 0.6 (0-2) % Neut # (Auto) 1700 (2855-7747) /uL Lymph # (Auto) 1500 (5392-7248) /uL [place] # (Auto) 700 (0-900) /uL Eos # (Auto) 0 (0-450) /uL Baso # (Auto) 0 (0-100) /uL D-Dimer (<230) ng/mL Sodium (137-145) mmol/L Potassium (3.4-5.1) mmol/L Chloride (98-107) mmol/L Carbon Dioxide (22-32) mmol/L BUN (7-17) mg/dL Creatinine (0.52-1.04) mg/dL Estimated GFR (>60) mL/min BUN/Creatinine Ratio (6-22) Glucose (70-100) mg/dL Lactate (0.7-2.1) mmol/L Calcium (8.4-10.2) mg/dL Ferritin (6-137) ng/mL Total Bilirubin (0.2-1.3) mg/dL AST (14-36) IU/L ALT (<35) IU/L Alkaline Phosphatase (38-126) U/L Lactate Dehydrogenase (313-618) U/L Total Creatine Kinase (30-135) U/L CK-MB (CK-2) CK-MB (CK-2) Rel Index Troponin I (0.01-0.034) ng/mL C-Reactive Protein (<1.0) mg/dL Total Protein (6.3-8.2) g/dL Albumin (3.5-5.0) g/dL Globulin (1.7-4.1) g/dL Albumin/Globulin Ratio (1.0-2.8) Procalcitonin < 0.05 (<0.5) ng/mL COVID-19 PCR Positive H (Negative) 02/20/20 02/20/20 02/20/20 Range/Units 19:20 19:20 19:20 WBC (4.5-11.0) X10^3/uL RBC (4.0-5.2) X10^6/uL Hgb (12.0-16.0) g/dL Hct (36-46) % MCV (80-100) fL MCH (26-34) PG MCHC (30-36) % RDW (11.6-14.8) % Plt Count (150-400) X10^3/uL Neut % (Auto) (50-75) % Lymph % (Auto) (25-40) % [place] % (Auto) (3-14) % Eos % (Auto) (2-4) % Baso % (Auto) (0-2) % Neut # (Auto) (6131-8679) /uL Lymph # (Auto) (8371-7954) /uL [place] # (Auto) (0-900) /uL Eos # (Auto) (0-450) /uL Baso # (Auto) (0-100) /uL D-Dimer 423 H (<230) ng/mL Sodium 139 (137-145) mmol/L Potassium 4.0 (3.4-5.1) mmol/L Chloride 108 H (98-107) mmol/L Carbon Dioxide 24 (22-32) mmol/L BUN 11 (7-17) mg/dL Creatinine 0.92 (0.52-1.04) mg/dL Estimated GFR > 60.0 (>60) mL/min BUN/Creatinine Ratio 12.0 (6-22) Glucose 99 (70-100) mg/dL Lactate 0.7 (0.7-2.1) mmol/L Calcium 9.1 (8.4-10.2) mg/dL Ferritin (6-137) ng/mL Total Bilirubin 0.6 (0.2-1.3) mg/dL AST 40 H (14-36) IU/L ALT 30 (<35) IU/L Alkaline Phosphatase 43 (38-126) U/L Lactate Dehydrogenase (313-618) U/L Total Creatine Kinase (30-135) U/L CK-MB (CK-2) CK-MB (CK-2) Rel Index Troponin I (0.01-0.034) ng/mL C-Reactive Protein (<1.0) mg/dL Total Protein 7.9 (6.3-8.2) g/dL Albumin 4.5 (3.5-5.0) g/dL Globulin 3.4 (1.7-4.1) g/dL Albumin/Globulin Ratio 1.3 (1.0-2.8) Procalcitonin (<0.5) ng/mL COVID-19 PCR (Negative) 02/20/20 02/20/20 Range/Units 19:20 19:20 WBC (4.5-11.0) X10^3/uL RBC (4.0-5.2) X10^6/uL Hgb (12.0-16.0) g/dL Hct (36-46) % MCV (80-100) fL MCH (26-34) PG MCHC (30-36) % RDW (11.6-14.8) % Plt Count (150-400) X10^3/uL Neut % (Auto) (50-75) % Lymph % (Auto) (25-40) % [place] % (Auto) (3-14) % Eos % (Auto) (2-4) % Baso % (Auto) (0-2) % Neut # (Auto) (5492-7743) /uL Lymph # (Auto) (3512-9533) /uL [place] # (Auto) (0-900) /uL Eos # (Auto) (0-450) /uL Baso # (Auto) (0-100) /uL D-Dimer (<230) ng/mL Sodium (137-145) mmol/L Potassium (3.4-5.1) mmol/L Chloride (98-107) mmol/L Carbon Dioxide (22-32) mmol/L BUN (7-17) mg/dL Creatinine (0.52-1.04) mg/dL Estimated GFR (>60) mL/min BUN/Creatinine Ratio (6-22) Glucose (70-100) mg/dL Lactate (0.7-2.1) mmol/L Calcium (8.4-10.2) mg/dL Ferritin 78 (6-137) ng/mL Total Bilirubin (0.2-1.3) mg/dL AST (14-36) IU/L ALT (<35) IU/L Alkaline Phosphatase (38-126) U/L Lactate Dehydrogenase 472 (313-618) U/L Total Creatine Kinase 78 (30-135) U/L CK-MB (CK-2) TNP CK-MB (CK-2) Rel Index TNP Troponin I < 0.012 (0.01-0.034) ng/mL C-Reactive Protein 0.7 (<1.0) mg/dL Total Protein (6.3-8.2) g/dL Albumin (3.5-5.0) g/dL Globulin (1.7-4.1) g/dL Albumin/Globulin Ratio (1.0-2.8) Procalcitonin (<0.5) ng/mL COVID-19 PCR (Negative) Imaging Data Chest x-ray: Radiologist's Impression: [address] [id number] ReportSigned Patient: Deepak Abrams#: [id number]: 1980Acct:[id number]/Sex: 39 / FDate of Service: 02/20/20Loc: EDAccession Number: [id number] Procedure: XR chest 1V Ordering Provider: Seth Prado PROCEDURE: XR CHEST 1V INDICATIONS: covid symptoms TECHNIQUE: One view of the chest was acquired. COMPARISON: None. FINDINGS: Surgical changes and devices: None. Lungs and pleura: Lungs are clear. No pleural effusions or pneumothorax. Mediastinum: Mediastinal contours appear normal. Heart size is normal. Bones and chest wall: No suspicious bony lesions. Overlying soft tissues appear unremarkable. IMPRESSION: 1. No acute cardiopulmonary disease. Dictated by: Geo Navas M.D. on 02/20/2020 at 20:10 Approved by: Geo Navas M.D. on 02/20/2020 at 20:10 CTA chest: Radiologist's Impression: [address] [id number] Scan ReportSigned Patient: Deepak Abrams#: [id number]: 1980Acct:[id number]/Sex: 39 / FDate of Service: 02/20/20Loc: EDAccession Number: [id number] Procedure: CT angio chest PE protocol Ordering Provider: Seth Prado PROCEDURE: CT ANGIO CHEST PE PROTOCOL INDICATIONS: pleuric chest pain, RLQ, Covid +, elevated D dimer TECHNIQUE: After the administration of intravenous contrast, 2 mm thick sections acquired from the pulmonary apices to the posterior costophrenic angles. 3-dimensional maximum intensity projection (MIP) coronal and sagittal reformats were then acquired through the thorax. For radiation dose reduction, the following was used: automated exposure control, adjustment of mA and/or kV according to patient size. COMPARISON: [facility], CR, XR CHEST 1V, 02/20/2020, 19:52. [facility], CT, CT ABDOMEN PELVIS W CON, 02/20/2020, 21:03. FINDINGS: Image quality: Excellent. Pulmonary arteries: Pulmonary arteries are normal in size, and demonstrate no intraluminal filling defects to suggest central pulmonary embolism. Lungs and pleura: There is mild dependent atelectasis. There is a small [place]on bpleural ground-glass nodular opacity anteriorly in the right middle lobe measuring approximately 0.6 cm. No other definite acute airspace opacities. No pleural effusions or pneumothorax. Central and peripheral airways are patent. Mediastinum: Heart size is normal, without pericardial effusion. No mediastinal or hilar adenopathy. Thoracic aorta is normal in caliber and enhancement. Esoph cary is normal in caliber, without hiatal hernia. Bones and chest wall: No suspicious bony lesions. Ribs and thoracic spine appear intact throughout. No axillary or supraclavicular adenopathy. Abdomen: Visualized upper abdominal solid organs appear normal in the early arterial phase of enhancement. IMPRESSION: 1. No evidence of pulmonary embolism. 2. Small subpleural nodular ground-glass opacity in the anterior right middle lobe. The findings are nonspecific but are suggestive of infectious or inflammatory process such as developing viral pneumonia given patient's clinical history. Dictated by: Geo Navas M.D. on 02/20/2020 at 21:49 Approved by: Geo Navas M.D. on 02/20/2020 at 21:53 ECG Data Attestation: I personally reviewed and interpreted this ECG as follows: Interpretation: Normal sinus rhythm rate 80. No ST elevation or depression. Normal MS interval. Normal QT and QRS MDM Narrative Medical decision making narrative: Appropriate for discharge home. Not hypoxic. Likely has COVID infection pneumonia with pleurisy. Treat supportively. Not toxic not dyspneic. No repeat heart troponin enzymes. Low heart score. Pain reproducible Discharge Plan Departure Patient Disposition: Home Clinical Impression: COVID-19, Pneumonia, viral Instructions: Atypical Pneumonia, DI for COVID-19 (Suspected or Confirmed ), How to Care for Someone with COVID-19 Activity Restrictions/Additional Instructions: You must quarantine herself for 2 weeks. See family doctor in a week for recheck, may use telemedicine/video conferencing. Keep well hydrated. May use Tylenol or ibuprofen for pain and fever. Continue inhaler 2 puffs every 4-6 hours as needed for cough or short of breath. Return immediately if any concerns or questions or worsening Prescriptions: No Action Tylenol RF: 0 <Faustino Zhao MD - Last Filed: 02/20/20 23:55> Cosign ED Attending Cosignature Attestation: I personally evaluated and examined the patient and agree with the assessment, treatment plan, and disposition of the patient as recorded by the APC.
[2020-02-20 20:55] LABS: Ferritin 78 ng/mL (6-137)
== END 2020-02-20 22:27 | disposition home or self-care (01) ==
PROVIDERS: Nurse Practitioner Family; Emergency Provider Emergency Medicine
DX: U07.1 COVID-19 (principal); J18.9 Pneumonia, unspecified organism; R53.83 Other fatigue; R50.9 Fever, unspecified; R19.7 Diarrhea, unspecified; R05 Cough; R51.9 Headache, unspecified; J02.9 Acute pharyngitis, unspecified; R10.31 Right lower quadrant pain; R63.0 Anorexia; K90.0 Celiac disease
CPT/HCPCS: 36415; 71045; 71275; 74177; 80053; 82550; 82728; 83605; 83615; 84145; 84484; 85025; 85379; 86140; 87040; 87635; 93005; 93010; 94640; 96361; 96374; 96375; 99284; A9270; J1885; J2405; Q9967

== ENCOUNTER 2020-11-09 17:25 | Emergency (ER) | payer OTHER, SELFPAY ==
[2020-11-09 17:40] VITALS: BP 123/70; PULSE 87; RESP 18; TEMP 36.1; O2SAT 97; BMI 31.1
--- NOTE | 2020-11-09 20:26 | ED_ITS ---
HPI - General Adult General Chief complaint: GI Bleed Stated complaint: butt is falling out, cant eat, blood, nauseated, Time Seen by Provider: 11/09/20 19:08 Source: patient Mode of arrival: Ambulatory Limitations: no limitations History of Present Illness HPI narrative: 40-year-old post hysterectomy with no significant additional medical problems presents with pelvic pain and a sense that her rectum is fall ing out. She complains of dyspareunia particularly with deep penetration. She has some difficulty voiding and stooling that is helped with positioning but has not tried splinting with her fingers in her vagina at all. She has a small hemorrhoidal tag that bothers her occasionally but is not currently thrombosed. She has had a prior unremarkable colonoscopy. She complains of increasing low pelvic pain, nausea and general discomfort. She denies any fevers, cough, chills, palpitations, chest pain. Has not been gaining or losing weight. Related Data Home Medications Medication Instructions Recorded Confirmed Tylenol 02/20/20 Allergies Allergy/AdvReac Type Severity Reaction Status Date / Time gluten Allergy Verified 02/20/20 19:21 Review of Systems Review of Systems Narrative: Remainder of complete review of systems is otherwise unremarkable except for that included in the HPI. Patient History Medical History Celiac disease Surgical History History of hysterectomy Social History Smoking Status: Never smoker alcohol intake: current substance use type: does not use Smoking Status: Never smoker Substance Use Type: does not use Exam Narrative Exam Narrative: General: Alert appropriate in no acute distress Respiratory: Able to speak in full sentences, no obvious respiratory distress Skin: No obvious rashes, warm and dry Neurologic: Grossly intact no obvious asymmetries or abnormalities Psych: appropriate insight and affect, cooperative Pelvic exam: She has moderate cystocele, rectocele and vaginal cuff descensus. Small non thrombosed hemorrhoidal tag. No internal hemorrhoids appreciated. No pelvic masses are noted on bimanual exam Initial Vital Signs Initial Vital Signs: Vital Signs Temperature 96.9 F L 11/09/20 17:40 Pulse Rate 87 11/09/20 17:40 Respiratory Rate 18 11/09/20 17:40 Blood Pressure 123/70 11/09/20 17:40 Pulse Oximetry 97 11/09/20 17:40 Course Vital Signs Vital signs: Vital Signs - 8 hr 11/09/20 17:40 Temperature 96.9 F L Pulse Rate 87 Respiratory Rate 18 Blood Pressure 123/70 Pulse Oximetry 97 Medical Decision Making MDM Narrative Medical decision making narrative: 40-year-old woman complains of pelvic pain pressure difficulty with voiding stooling and intercourse. Moderate rectocele cystocele and uterine cuff descensus. Will refer her to Gynecology for more thorough evaluation and discussion of any type of surgical repair. Talked about management options such as making sure that she is not constipated, using fingers in her vagina to splint while she is stooling or voiding. Shallower penetration positions to avoid dyspareunia. 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 We talked about positional techniques to help with pain. Using her fingers in your vaginal wall your going to the bathroom to help with pain can also be tried. Making sure that you are avoiding any type of constipation to reduce straining . Please contact [facility] to schedule an appointment with 1 of our OB GYNs Prescriptions: No Action Tylenol RF: 0 Referrals: Jose Driver MD [Physician] -
[2020-11-09 20:42] VITALS: BP 101/55; PULSE 80; O2SAT 99
== END 2020-11-09 20:46 | disposition home or self-care (01) ==
PROVIDERS: Emergency Provider Emergency Medicine
DX: N99.3 Prolapse of vaginal vault after hysterectomy (principal)
CPT/HCPCS: 99281

== ENCOUNTER 2021-02-05 10:47 | Emergency (ER) | payer OTHER, SELFPAY ==
[2021-02-05 10:55] VITALS: BP 115/70; PULSE 80; RESP 16; TEMP 36.6; O2SAT 98; BMI 31.1
--- NOTE | 2021-02-05 10:59 | DI.RAD.S_ITS ---
PROCEDURE: XR CHEST 1V INDICATIONS: chest pain TECHNIQUE: One view of the chest was acquired. COMPARISON: [facility], CT, CT ANGIO CHEST PE PROTOCOL, 02/20/2020, 21:03. [facility], CR, XR CHEST 1V, 02/20/2020, 19:52. FINDINGS: Surgical changes and devices: None. Lungs and pleura: Lungs are clear. No pleural effusions or pneumothorax. Mediastinum: Mediastinal contours appear normal. Heart size is normal. Bones and chest wall: No suspicious bony lesions. Overlying soft tissues appear unremarkable. IMPRESSION: Normal portable chest. Dictated by: Juan Jose Rowland M.D. on 02/05/2021 at 10:24 Approved by: Juan Jose Rowland M.D. on 02/05/2021 at 10:24
[2021-02-05 11:09] VITALS: PULSE 84; O2SAT 98
[2021-02-05 11:14] LABS: Add Manual Diff / Slide Review NO; Basophils Absolute Auto 100 /uL (0-100); Basophils Percent Auto 1.1 % (0-2); Eosinophils Absolute Auto 100 /uL (0-450); Hematocrit 41.3 % (36-46); Hemoglobin 14.1 g/dL (12.0-16.0); Lymphocytes Absolute Auto 2200 /uL (1100-4500); Mean Corpuscular HGB Conc 34.2 % (30-36); Mean Corpuscular Hemoglobin 30.3 PG (26-34); Mean Corpuscular Volume 88.6 fL (80-100); Monocytes Absolute Auto 300 /uL (0-900); Monocytes Percent Auto 4.7 % (3-14); Neutrophils Absolute Auto 4400 /uL (1500-7000); Neutrophils Percent Auto 61.2 % (50-75); Platelet Count 251 X10^3/uL (150-400); Red Blood Cell Count 4.66 X10^6/uL (4.0-5.2); Red Cell Distribution Width 12.7 % (11.6-14.8); White Blood Cell Count 7.2 X10^3/uL (4.5-11.0)
--- NOTE | 2021-02-05 11:14 | ED_ITS ---
HPI - Chest Pain General Chief Complaint: Chest Pain Stated Complaint: heart being crazy, chest pain Time Seen by Provider: 02/05/21 11:09 Source: patient Mode of arrival: Ambulatory Limitations: no limitations History of Present Illness HPI narrative: Patient is a 40-year-old female here for evaluation of ?heart being crazy ?and chest pain and shortness of breath and left arm pain. States the symptoms started last evening. She went to bed last night with them. Woke up with him this morning. She is still having the chest discomfort however the palpitations that she is feeling are gone. No prior cardiac diagnoses. She did take aspirin prior to arrival. She has been having diarrhea recently. Related Data Home Medications Medication Instructions Recorded Confirmed Tylenol 02/20/20 Allergies Allergy/AdvReac Type Severity Reaction Status Date / Time gluten Allergy Verified 02/20/20 19:21 Review of Systems Constitutional Constitutional: Reports system reviewed and no additional complaints, except as documented Cardiovascular Cardiovascular: Reports as per HPI and Reports system reviewed and no additional complaints, except as documented Respiratory Respiratory: Reports as per HPI and Reports system reviewed and no additional complaints, except as documented Gastrointestinal Gastrointestinal: Reports as per HPI and Reports system reviewed and no additional complaints, except as documented Musculoskeletal Musculoskeletal: Reports system reviewed and no additional complaints, except as documented Integumentary/Breasts Skin/Breast: Reports system reviewed and no additional complaints, except as documented Hematologic/Lymphatic On Anticoagulants: No Patient History Medical History Celiac disease Surgical History History of hysterectomy Social History Smoking Status: Never smoker alcohol intake: current substance use type: does not use Smoking Status: Never smoker Substance Use Type: does not use Exam Initial Vital Signs Initial Vital Signs: Vital Signs Temperature 97.8 F 02/05/21 10:55 Pulse Rate 80 02/05/21 10:55 Respiratory Rate 16 02/05/21 10:55 Blood Pressure 115/70 02/05/21 10:55 Pulse Oximetry 98 02/05/21 10:55 Const General: cooperative and healthy appearing HENMT Head: normal to inspection and normocephalic Resp Effort & Inspection: normal respiratory effort Auscultation: clear to auscultation bilaterally Cardio Rate: regular rate Rhythm: regular rhythm GI Inspection: normal to inspection Skin General: no rashes or lesions noted Neuro General: patient alert, patient awake, patient oriented x3 and moves all extremities Extrem General: normal to inspection and capillary refill normal Psych Appearance: grossly normal and well kempt Course Orders Ordered: ED Orders 02/05/21 10:59 XR chest 1V Stat EKG-12 Lead Stat 02/05/21 11:02 Complete Blood Count AUTO DIFF Stat Comprehensive Metabolic Panel Stat Lipase Stat Troponin & CK Cardiac Panel Stat Vital Signs Vital signs: Vital Signs - 8 hr 02/05/21 10:55 02/05/21 11:09 02/05/21 11:30 Temperature 97.8 F Pulse Rate 80 84 76 Respiratory Rate 16 Blood Pressure 115/70 Pulse Oximetry 98 98 96 02/05/21 12:00 02/05/21 12:38 Temperature Pulse Rate 77 78 Respiratory Rate Blood Pressure 121/73 Pulse Oximetry 96 99 MDM - Chest Pain Lab Data Attestation: I reviewed the patient's lab results. Result diagrams: 02/05/21 11:02 02/05/21 11:02 Labs: Lab Results 02/05/21 02/05/21 Range/Units 11:02 11:02 WBC 7.2 (4.5-11.0) X10^3/uL RBC 4.66 (4.0-5.2) X10^6/uL Hgb 14.1 (12.0-16.0) g/dL Hct 41.3 (36-46) % MCV 88.6 (80-100) fL MCH 30.3 (26-34) PG MCHC 34.2 (30-36) % RDW 12.7 (11.6-14.8) % Plt Count 251 (150-400) X10^3/uL Neut % (Auto) 61.2 (50-75) % Lymph % (Auto) 31.0 (25-40) % [place] % (Auto) 4.7 (3-14) % Eos % (Auto) 2.0 (2-4) % Baso % (Auto) 1.1 (0-2) % Neut # (Auto) 4400 (9908-5331) /uL Lymph # (Auto) 2200 (0150-1938) /uL [place] # (Auto) 300 (0-900) /uL Eos # (Auto) 100 (0-450) /uL Baso # (Auto) 100 (0-100) /uL Sodium 140 (137-145) mmol/L Potassium 3.8 (3.4-5.1) mmol/L Chloride 105 (98-107) mmol/L Carbon Dioxide 26 (22-32) mmol/L BUN 11 (7-17) mg/dL Creatinine 0.77 (0.52-1.04) mg/dL Estimated GFR > 60.0 (>60) mL/min BUN/Creatinine Ratio 14.3 (6-22) Glucose 114 H (70-100) mg/dL Calcium 9.2 (8.4-10.2) mg/dL Total Bilirubin 0.6 (0.2-1.3) mg/dL AST 24 (14-36) IU/L ALT 24 (<35) IU/L Alkaline Phosphatase 42 (38-126) U/L Total Creatine Kinase 66 (30-135) U/L CK-MB (CK-2) TNP CK-MB (CK-2) Rel Index TNP Troponin I < 0.012 (0.01-0.034) ng/mL Total Protein 7.4 (6.3-8.2) g/dL Albumin 4.5 (3.5-5.0) g/dL Globulin 2.9 (1.7-4.1) g/dL Albumin/Globulin Ratio 1.6 (1.0-2.8) Lipase 67 (23-300) U/L Imaging Data Chest x-ray: Radiologist's Impression: [address] [address] XRay Report Signed Patient: Mulu Abrams MR#: [id number] : 1980 Acct:[id number] Age/Sex: 40 / F Date of Service: 02/05/21 Loc: ED Accession Number: [id number] ?? Procedure: XR chest 1V Ordering Provider: Jose Eduardo Vega D.O. PROCEDURE:? XR CHEST 1V ? INDICATIONS:? chest pain ? TECHNIQUE:? One view of the chest was acquired.? ? COMPARISON:? [facility], CT, CT ANGIO CHEST PE PROTOCOL, 02/20/2020, 21:03.? [facility], CR, XR CHEST 1V, 02/20/2020, 19:52. ? FINDINGS:? ? Surgical changes and devices:? None.? ? Lungs and pleura:? Lungs are clear.? No pleural effusions or pneumothorax.? ? Mediastinum:? Mediastinal contours appear normal.? Heart size is normal.? ? Bones and chest wall:? No suspicious bony lesions.? Overlying soft tissues appear unremarkable.? ? IMPRESSION:? ? Normal portable chest. ? ? Dictated by: Juan Jose Rowland M.D. on 02/05/2021 at 10:24 ? ? Approved by: Juan Jose Rowland M.D. on 02/05/2021 at 10:24 ECG Data Attestation: I personally reviewed and interpreted this ECG as follows: Prior ECG tracings: not available for review Interpretation: Sinus rhythm Ventricular rate of 75 Normal QRS QTC 435 Baseline artifact noted No ST T wave changes MDM Narrative Medical decision making narrative: Patient had 1 episode of symptoms here in the emergency department that did not correspond any abnormalities on the cardiac monitors. Her EKG is unremarkable. Labs unremarkable. Chest x-ray is unremarkable. I did discuss that the workup shows what is going currently. A could not tell her specifically what her heart rate and rhythm was last evening when she was having symptoms. Informed her that she should contact her primary doctor to discuss the indications for a Holter monitor. I feel we can hold on further workup for now. She was given return precautions. She expressed understanding and agreement. Discharge Plan Departure Patient Disposition: Home Clinical Impression: Heart palpitations Instructions: DI for Arrhythmias Activity Restrictions/Additional Instructions: Your workup here in the emergency department is very reassuring. There is no signs of any heart attack and your lungs are unremarkable. I do recommend you contact your primary doctor for a follow-up and to discuss the indications for a Holter monitor. Return to the emergency department for any new or worsening symptoms Prescriptions: No Action Tylenol 0RF
[2021-02-05 11:26] LABS: Alanine Aminotransferase 24 IU/L (<35); Albumin 4.5 g/dL (3.5-5.0); Albumin Globulin Ratio 1.6 (1.0-2.8); Alkaline Phosphatase 42 U/L (38-126); Aspartate Aminotransferase 24 IU/L (14-36); BUN Creatinine Ratio 14.3 (6-22); Bilirubin Total 0.6 mg/dL (0.2-1.3); Blood Urea Nitrogen 11 mg/dL (7-17); Calcium 9.2 mg/dL (8.4-10.2); Carbon Dioxide 26 mmol/L (22-32); Chloride 105 mmol/L (98-107); Creatine Kinase 66 U/L (30-135); Estimated Glomerular Filt Rate > 60.0 mL/min (>60); Globulin 2.9 g/dL (1.7-4.1); Glucose 114 mg/dL (70-100); HEMOLYSIS < 15 (0-50); Lipase 67 U/L (23-300); Potassium 3.8 mmol/L (3.4-5.1); Sodium 140 mmol/L (137-145); Total Protein 7.4 g/dL (6.3-8.2)
[2021-02-05 11:30] VITALS: PULSE 76; O2SAT 96
[2021-02-05 11:37] LABS: Troponin I < 0.012 ng/mL (0.01-0.034)
[2021-02-05 12:00] VITALS: PULSE 77; O2SAT 96
[2021-02-05 12:38] VITALS: BP 121/73; PULSE 78; O2SAT 99
== END 2021-02-05 12:42 | disposition home or self-care (01) ==
PROVIDERS: Emergency Provider Emergency Medicine
DX: R07.9 Chest pain, unspecified (principal); R00.2 Palpitations
CPT/HCPCS: 36415; 71045; 80053; 82550; 83690; 84484; 85025; 93005; 99284

== ENCOUNTER → 2023-01-09 08:03 | Outpatient (CLI) | payer OTHER, SELFPAY ==
--- NOTE | 2023-01-09 08:06 | DI.MG.S_ITS ---
BILATERAL DIGITAL SCREENING MAMMOGRAM 3D/2D WITH CAD: 01/09/2023 No prior exams were available for comparison. Both breasts are heterogeneously dense, which may obscure small masses (category c / 51-75% glandular tissue). Current study was also evaluated with a Computer Aided Detection (CAD) system. No significant masses, calcifications, or other findings are seen in either breast. IMPRESSION: NEGATIVE There is no mammographic evidence of malignancy. A 1 year screening mammogram is recommended. Based on the Tyrer Cuzick model (a risk assessment model) the patient's lifetime risk is 12.9% and her 10 year risk is 1.6%. According to the ACR, ACS, and NCCN guidelines, an annual breast MRI exam along with mammogram is recommended if the patient's lifetime risk is 20% or greater. This exam was interpreted at Station ID: [id number]. NOTE: For mammograms, a report in lay terms will be sent to the patient. Approximately 15% of breast malignancies will not be visualized mammographically. In the management of a palpable breast mass, a negative mammogram must not discourage biopsy of a clinically suspicious lesion. Electronically Signed By: Riaz bassett/kimi:01/09/2023 13:15:10 letter sent: Normal Exam ACR BI-RADS Category 1: Negative [id number]
== END ==
PROVIDERS: PCP Chiropractor; Referring Provider Chiropractor; Visit Provider Chiropractor
DX: Z12.31 Encounter for screening mammogram for malignant neoplasm of breast (principal)
CPT/HCPCS: 77063; 77067

== ENCOUNTER 2023-04-15 14:24 | Emergency (ER) | payer OTHER, SELFPAY ==
[2023-04-15] VITALS (19 sets, daily range): BP systolic 104–139; BP diastolic 57–82; PULSE 74–106; RESP 9–27; TEMP 36.7; O2SAT 93–100; BMI 31.0
--- NOTE | 2023-04-15 14:40 | ED_ITS ---
HPI - General Adult <DO Anderson Mendieta Last Filed: 04/18/23 17:59> General Chief complaint: Psychiatric Symptoms Stated complaint: SI Time Seen by Provider: 04/15/23 14:33 Source: patient and EMS Mode of arrival: EMS Limitations: no limitations History of Present Illness HPI narrative: Patient is a 43-year-old female. She was brought in by EMS for evaluation after an attempted hanging. Patient was initially found by police in a local business. She was hanging by a ?flex hose/garden hose by the neck. Patient states that she did try to hang herself in order to kill herself. She states that she just tried to suffocate herself and that she did not fall or jump off of anything however there were reports that there was a stool next to her. There was a period of time where she was unresponsive however did not require any CPR when she was cut down. He was also reports that she did overdose on medications although she would not exactly say what she took. When I asked her she states she did not take any medicines. No alcohol use. She does have prior history of suicide attempts. Two months ago she went to [employer] and was going to jump however she was talking with a friend. She states that her friend said something that made her angry so she decided not to jump. She is also tried to cut her ?jugular vein? in the past and does have a scar in the left side of her neck. She is on Prozac. Sounds like she intermittently takes this medicine but states she has been on it for the past 2 weeks. She does go to group therapy. Not entirely sure if she sees a mental health provider on a regular basis. She states that she got into an argument with an individual this afternoon which prompted her to try to hang herself. Related Data Home Medications Medication Instructions Recorded Confirmed No Known Home Medications 04/16/23 04/16/23 Allergies Allergy/AdvReac Type Severity Reaction Status Date / Time gluten Allergy Verified 04/15/23 16:58 Milk Containing Products Allergy Verified 04/15/23 16:58 (Dairy) meats Allergy Uncoded 04/15/23 17:13 Review of Systems <DO Anderson Mendieta Last Filed: 04/18/23 17:59> Review of Systems ROS Unobtainable: All systems reviewed & are unremarkable except as noted in HPI and below Patient History <DO Anderson Mendieta Last Filed: 04/18/23 17:59> Medical History Celiac disease Surgical History History of hysterectomy Social History Smoking Status: Never smoker alcohol intake: current substance use type: does not use Smoking Status: Never smoker Substance Use Type: does not use Exam <Jose Eduardo Vega DO - Last Filed: 04/18/23 17:59> Initial Vital Signs Initial Vital Signs: Vital Signs Temperature 98.1 F 04/15/23 14:36 Pulse Rate 96 H 04/15/23 14:36 Respiratory Rate 18 04/15/23 14:36 Blood Pressure 134/82 04/15/23 14:36 Pulse Oximetry 99 04/15/23 14:36 Oxygen Delivery Method Room Air 04/15/23 14:36 Const General: cooperative, comfortable and No ill appearing HENNE Head: normal to inspection and normocephalic Face and sinus: normal facial exam Mouth: oral mucosae normal Neck Other: No crepitus. No breaks in the skin. Does have redness around her neck. Resp Effort & Inspection: normal respiratory effort Auscultation: clear to auscultation bilaterally Cardio Rate: regular rate Rhythm: regular rhythm GI Inspection: normal to inspection and non-distended Back/Spine/Pelvis Cervical Spine: No cervical spinal tenderness Skin Other: Patient does have redness around her neck but no breaks in the skin. No petechiae noted on the face. Neuro General: patient alert, patient awake, patient oriented x3 and moves all extremities Extrem Other: No gross deformities Psych Other: Patient does have a flat affect. She is somewhat cooperative. <Dariel Oliva MD - Last Filed: 04/24/23 07:17> Initial Vital Signs Initial Vital Signs: Vital Signs Temperature 98.1 F 04/15/23 14:36 Pulse Rate 96 H 04/15/23 14:36 Respiratory Rate 18 04/15/23 14:36 Blood Pressure 134/82 04/15/23 14:36 Pulse Oximetry 99 04/15/23 14:36 Oxygen Delivery Method Room Air 04/15/23 14:36 <Ann Snyder DO - Last Filed: 04/16/23 15:07> Initial Vital Signs Initial Vital Signs: Vital Signs Temperature 98.1 F 04/15/23 14:36 Pulse Rate 96 H 04/15/23 14:36 Respiratory Rate 18 04/15/23 14:36 Blood Pressure 134/82 04/15/23 14:36 Pulse Oximetry 99 04/15/23 14:36 Oxygen Delivery Method Room Air 04/15/23 14:36 Scores <Jose Eduardo Vega DO - Last Filed: 04/18/23 17:59> GCS Sissy coma scale eye opening: Spontaneous Sissy coma scale verbal response: Orientated [place] coma scale motor response: Obey commands Dil[place] coma scale total score: 15 <Dariel Oliva MD - Last Filed: 04/24/23 07:17> GCS Dilley coma scale total score: 15 <Ann Snyder DO - Last Filed: 04/16/23 15:07> GCS Sissy coma scale total score: 15 Course <Jose Eduardo Vega DO - Last Filed: 04/18/23 17:59> Orders Ordered: Discontinued Medications Acetaminophen (Acetaminophen 325 Mg Tablet) 650 mg PO NOW ONE Stop: 04/15/23 18:52 Last Admin: 04/15/23 19:16 Dose: 650 mg Documented By: KELLIE Acetaminophen (Acetaminophen 325 Mg Tablet) 650 mg PO NOW ONE Stop: 04/16/23 00:51 Last Admin: 04/16/23 00:55 Dose: 650 mg Documented By: DESTINY Aspirin (Aspirin Ec 325 Mg Tablet) 325 mg PO NOW ONE Stop: 04/15/23 20:13 Last Admin: 04/15/23 20:17 Dose: 325 mg Documented By: KELLIE Aspirin (Aspirin Ec 325 Mg Tablet) 325 mg PO DAILY [facility] Last Admin: 04/16/23 10:21 Dose: 325 mg Documented By: RB Olanzapine (Olanzapine Odt 10 Mg Tab) 10 mg PO NOW ONE Stop: 04/15/23 21:05 Last Admin: 04/15/23 21:23 Dose: Not Given Documented By: ROCÍO Vital Signs Vital signs: Vital Signs - 8 hr 04/16/23 08:55 04/16/23 13:42 Temperature 98.2 F Pulse Rate 84 82 Respiratory Rate 18 18 Blood Pressure 109/52 L 107/55 L Pulse Oximetry 98 99 Oxygen Delivery Method Room Air Room Air <Dariel Oliva MD - Last Filed: 04/24/23 07:17> Course Course Narrative: Care assumed at 6:00 p.m. shift change. I reviewed the patient's history, recent imaging which includes a CT angio of the neck that shows a clot in the right internal jugular vein, this looks to me to be about a 2 cm long clot. The patient is reporting a headache currently, she is not hallucinating she says she has not still feeling suicidal. She has no history of abnormal clotting although there is a family history of some type of abnormal clotting in the head or neck in her sister. The patient is not on oral contraceptives he has not use IV drugs. She is now aware of the finding of an internal jugular vein clot. Patient is presently voluntary and agreeable to stay for further workup and psychiatric care. On examination she is neurologically intact with no motor deficits no ataxia no carotid bruit voice is normal lungs are clear heart sounds are normal. My plan at this point in his contact the [facility] for expert advice. At 9:00 p.m., the patient has been observed by nursing staff actively pulling out her IVs to cause bleeding, and attempting but tubing and cords around her neck. She had been moved to a ligature free room. I will dispatched PCR and I am ordered olanzapine p.o. patient is now medically cleared. Orders Ordered: Discontinued Medications Acetaminophen (Acetaminophen 325 Mg Tablet) 650 mg PO NOW ONE Stop: 04/15/23 18:52 Last Admin: 04/15/23 19:16 Dose: 650 mg Documented By: RLS Acetaminophen (Acetaminophen 325 Mg Tablet) 650 mg PO NOW ONE Stop: 04/16/23 00:51 Last Admin: 04/16/23 00:55 Dose: 650 mg Documented By: BB Aspirin (Aspirin Ec 325 Mg Tablet) 325 mg PO NOW ONE Stop: 04/15/23 20:13 Last Admin: 04/15/23 20:17 Dose: 325 mg Documented By: RLS Aspirin (Aspirin Ec 325 Mg Tablet) 325 mg PO DAILY [facility] Last Admin: 04/16/23 10:21 Dose: 325 mg Documented By: RB Olanzapine (Olanzapine Odt 10 Mg Tab) 10 mg PO NOW ONE Stop: 04/15/23 21:05 Last Admin: 04/15/23 21:23 Dose: Not Given Documented By: KH Consultations Consultation #1: Case discussed with Dr. Kel Henriquez, neurosurgery at [facility]. Recommendation is for aspirin 325 daily repeat imaging in 6 weeks. Patient advised of this and I am going to order aspirin now Vital Signs Vital signs: Vital Signs - 8 hr 04/16/23 08:55 04/16/23 13:42 Temperature 98.2 F Pulse Rate 84 82 Respiratory Rate 18 18 Blood Pressure 109/52 L 107/55 L Pulse Oximetry 98 99 Oxygen Delivery Method Room Air Room Air <Ann Snyder, DO - Last Filed: 04/16/23 15:07> Orders Ordered: Discontinued Medications Acetaminophen (Acetaminophen 325 Mg Tablet) 650 mg PO NOW ONE Stop: 04/15/23 18:52 Last Admin: 04/15/23 19:16 Dose: 650 mg Documented By: KELLIE Acetaminophen (Acetaminophen 325 Mg Tablet) 650 mg PO NOW ONE Stop: 04/16/23 00:51 Last Admin: 04/16/23 00:55 Dose: 650 mg Documented By: DESTINY Aspirin (Aspirin Ec 325 Mg Tablet) 325 mg PO NOW ONE Stop: 04/15/23 20:13 Last Admin: 04/15/23 20:17 Dose: 325 mg Documented By: KELLIE Aspirin (Aspirin Ec 325 Mg Tablet) 325 mg PO DAILY [facility] Last Admin: 04/16/23 10:21 Dose: 325 mg Documented By: RB Olanzapine (Olanzapine Odt 10 Mg Tab) 10 mg PO NOW ONE Stop: 04/15/23 21:05 Last Admin: 04/15/23 21:23 Dose: Not Given Documented By: ROCÍO Vital Signs Vital signs: Vital Signs - 8 hr 04/16/23 08:55 04/16/23 13:42 Temperature 98.2 F Pulse Rate 84 82 Respiratory Rate 18 18 Blood Pressure 109/52 L 107/55 L Pulse Oximetry 98 99 Oxygen Delivery Method Room Air Room Air Medical Decision Making <Jose Eduardo Vega DO - Last Filed: 04/18/23 17:59> Lab Data Lab results reviewed: Yes I reviewed the patient's lab results. 04/15/23 14:36 04/15/23 14:36 Labs: Lab Results 04/15/23 04/15/23 04/15/23 Range/Units 14:36 15:44 15:44 WBC 5.7 (4.5-11.0) X10^3/uL RBC 4.35 (4.0-5.2) X10^6/uL Hgb 13.3 (12.0-16.0) g/dL Hct 38.2 (36-46) % MCV 87.9 (80-100) fL MCH 30.5 (26-34) PG MCHC 34.7 (30-36) % RDW 12.6 (11.6-14.8) % Plt Count 229 (150-400) X10^3/uL Neut % (Auto) 57.3 (50-75) % Lymph % (Auto) 33.1 (25-40) % [place] % (Auto) 6.0 (3-14) % Eos % (Auto) 2.5 (2-4) % Baso % (Auto) 1.1 (0-2) % Neut # (Auto) 3300 (8103-3606) /uL Lymph # (Auto) 1900 (5328-5408) /uL [place] # (Auto) 300 (0-900) /uL Eos # (Auto) 100 (0-450) /uL Baso # (Auto) 100 (0-100) /uL PT 11.3 (9.4-12.5) SECONDS INR 1.0 (0.9-1.3) APTT 26 (25.1-36.5) SECONDS Sodium 138 (137-145) mmol/L Potassium 3.7 (3.4-5.1) mmol/L Chloride 107 (98-107) mmol/L Carbon Dioxide 22 (22-32) mmol/L BUN 11 (7-17) mg/dL Creatinine 0.84 (0.52-1.04) mg/dL Estimated GFR > 60 (>60) mL/min BUN/Creatinine Ratio 13.1 (6-22) Glucose 123 H (70-100) mg/dL Calcium 9.6 (8.4-10.2) mg/dL Magnesium 1.8 (1.6-2.3) mg/dL Total Bilirubin 0.7 (0.2-1.3) mg/dL AST 30 (14-36) IU/L ALT 30 (<35) IU/L Alkaline Phosphatase 37 L (38-126) U/L Total Protein 7.6 (6.3-8.2) g/dL Albumin 4.4 (3.5-5.0) g/dL Globulin 3.2 (1.7-4.1) g/dL Albumin/Globulin Ratio 1.4 (1.0-2.8) Lipase 82 (23-300) U/L TSH 2.33 (0.47-4.68) uIU/mL Serum , Qual Negative (Negative) Urine Color Yellow Urine Appearance Clear Urine pH 8.0 Normal (4.5-8.0) Ur Specific [place] 1.015 (1.000-1.035) Urine Protein Negative (Negative) Urine Glucose (UA) Negative (Negative) g/dL Urine Ketones Negative (NEGATIVE) Urine Occult Blood Negative (Negative) Urine Nitrate Negative (Negative) Urine Bilirubin Negative (NEGATIVE) Urine Urobilinogen 0.2 (0.2) E.U./dL Ur Leukocyte Esterase Negative (NEGATIVE) Urine RBC None seen (0-5/HPF) Urine WBC None seen (0-5/HPF) Ur Squamous Epith Cells None seen (0-5/HPF) Urine Bacteria None seen (None) Ur Culture Indicated? Cult not indicated Vol Urine Centrifuged 10ml (spun) Salicylates < 1.0 (<20) mg/dL U Opiates 300ng/mL cut Negative (Negative) Ur Oxycodone Screen Negative (Negative) Urine Methadone Screen Negative (Negative) Acetaminophen < 10 (10-30) ug/mL Ur Barbiturates Screen Negative (Negative) U Tricyclic Antidepress Negative (Negative) Ur Phencyclidine Scrn Negative (Negative) Ur Amphetamines Screen Negative (Negative) U Methamphetamines Scrn Negative (Negative) Ur MDMA Scrn (Ecstasy) Negative (Negative) U Benzodiazepines Scrn Negative (Negative) Urine Cocaine Screen Negative (Negative) U Marijuana (THC) Screen Negative (Negative) Urine Specific [place] Normal (Normal) Ethyl Alcohol < 10 ( - 10) mg/dL Ur Creatinine Normal (Normal) SARS-CoV-2 (PCR) Negative (Negative) Imaging Data CTA neck: Radiologist's Impression: PROCEDURE: CT ANGIO NECK INDICATIONS: Attempted hanging TECHNIQUE: After the administration of intravenous contrast, 1.5 mm axial sections acquired from the aortic arch to the [place] of [place]. Maximum intensity projection (MIP) reformats were then performed. COMPARISON: [facility], CT, CT HEAD WITHOUT CONTRAST, 09/26/2022, 23:27. FINDINGS: Image quality: Diagnostic. Carotid system: The great vessels demonstrate a conventional anatomy as they arise from the aortic arch. The origins of the common carotid arteries appear patent. The common carotid arteries demonstrate normal calibers and courses. The bifurcation regions appear normal bilaterally. The internal carotid arteries demonstrate normal caliber and course. Posterior circulation: The origins of the vertebral arteries appear patent. The more superior portions of the vertebral arteries demonstrate normal course and caliber. They join to form a normal appearing basilar artery. Soft tissues: There is a filling defect in the right internal jugular vein as the sigmoid sinus entering to the jugular foramen, which is enlarged, consistent with venous thrombosis. Visualized neck soft tissues demonstrate no suspicious abnormalities. The thyroid gland there is a common trunk for the left common carotid artery and innominate artery 80 mL Omnipaque 350 IV. . Bones: No suspicious bony lesions. Visualized cervical spine appears normally aligned. IMPRESSION: 1. No significant arterial injuries in the neck. 2. 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 The result was discussed with Dr. Vega. Any quantitative stenosis measurements were performed using the NASCET criteria. ECG Data Attestation: I personally reviewed and interpreted this ECG as follows: Interpretation: Sinus rhythm Ventricular rate of 82 Normal axis Normal QRS Normal QTC No ST T wave changes MDM Narrative Medical decision making narrative: Patient is alert and oriented x3. Not clinically intoxicated. Is calm in the room and is cooperative with answering questions but certainly has a flat affect. She states she was trying to hang herself in order to kill herself. She does have bruising around her neck. No problems breathing. Does have some painful swallowing. There was no crepitus and no focal neurologic findings. Vital signs unremarkable. She has had multiple attempts at trying to kill herself in the past. CT scan of the neck shows what appears to be a right-sided internal jugular vein thrombosis. Unsure as to whether not this is related to the attempted hanging earlier today or an incidental finding. Attempted to contact Hematology/Oncology to discuss this finding and to discuss the need for anticoagulation. Had an extended period of time without any return of the page. Care turned over to Dr. Oliva at change of shift to follow-up and disposition. Patient is voluntary. <Dariel Oliva MD - Last Filed: 04/24/23 07:17> Lab Data Labs: Lab Results 04/15/23 04/15/23 04/15/23 Range/Units 14:36 15:44 15:44 WBC 5.7 (4.5-11.0) X10^3/uL RBC 4.35 (4.0-5.2) X10^6/uL Hgb 13.3 (12.0-16.0) g/dL Hct 38.2 (36-46) % MCV 87.9 (80-100) fL MCH 30.5 (26-34) PG MCHC 34.7 (30-36) % RDW 12.6 (11.6-14.8) % Plt Count 229 (150-400) X10^3/uL Neut % (Auto) 57.3 (50-75) % Lymph % (Auto) 33.1 (25-40) % [place] % (Auto) 6.0 (3-14) % Eos % (Auto) 2.5 (2-4) % Baso % (Auto) 1.1 (0-2) % Neut # (Auto) 3300 (1085-0955) /uL Lymph # (Auto) 1900 (0057-9051) /uL [place] # (Auto) 300 (0-900) /uL Eos # (Auto) 100 (0-450) /uL Baso # (Auto) 100 (0-100) /uL PT 11.3 (9.4-12.5) SECONDS INR 1.0 (0.9-1.3) APTT 26 (25.1-36.5) SECONDS Sodium 138 (137-145) mmol/L Potassium 3.7 (3.4-5.1) mmol/L Chloride 107 (98-107) mmol/L Carbon Dioxide 22 (22-32) mmol/L BUN 11 (7-17) mg/dL Creatinine 0.84 (0.52-1.04) mg/dL Estimated GFR > 60 (>60) mL/min BUN/Creatinine Ratio 13.1 (6-22) Glucose 123 H (70-100) mg/dL Calcium 9.6 (8.4-10.2) mg/dL Magnesium 1.8 (1.6-2.3) mg/dL Total Bilirubin 0.7 (0.2-1.3) mg/dL AST 30 (14-36) IU/L ALT 30 (<35) IU/L Alkaline Phosphatase 37 L (38-126) U/L Total Protein 7.6 (6.3-8.2) g/dL Albumin 4.4 (3.5-5.0) g/dL Globulin 3.2 (1.7-4.1) g/dL Albumin/Globulin Ratio 1.4 (1.0-2.8) Lipase 82 (23-300) U/L TSH 2.33 (0.47-4.68) uIU/mL Serum , Qual Negative (Negative) Urine Color Yellow Urine Appearance Clear Urine pH 8.0 Normal (4.5-8.0) Ur Specific [place] 1.015 (1.000-1.035) Urine Protein Negative (Negative) Urine Glucose (UA) Negative (Negative) g/dL Urine Ketones Negative (NEGATIVE) Urine Occult Blood Negative (Negative) Urine Nitrate Negative (Negative) Urine Bilirubin Negative (NEGATIVE) Urine Urobilinogen 0.2 (0.2) E.U./dL Ur Leukocyte Esterase Negative (NEGATIVE) Urine RBC None seen (0-5/HPF) Urine WBC None seen (0-5/HPF) Ur Squamous Epith Cells None seen (0-5/HPF) Urine Bacteria None seen (None) Ur Culture Indicated? Cult not indicated Vol Urine Centrifuged 10ml (spun) Salicylates < 1.0 (<20) mg/dL U Opiates 300ng/mL cut Negative (Negative) Ur Oxycodone Screen Negative (Negative) Urine Methadone Screen Negative (Negative) Acetaminophen < 10 (10-30) ug/mL Ur Barbiturates Screen Negative (Negative) U Tricyclic Antidepress Negative (Negative) Ur Phencyclidine Scrn Negative (Negative) Ur Amphetamines Screen Negative (Negative) U Methamphetamines Scrn Negative (Negative) Ur MDMA Scrn (Ecstasy) Negative (Negative) U Benzodiazepines Scrn Negative (Negative) Urine Cocaine Screen Negative (Negative) U Marijuana (THC) Screen Negative (Negative) Urine Specific [place] Normal (Normal) Ethyl Alcohol < 10 ( - 10) mg/dL Ur Creatinine Normal (Normal) SARS-CoV-2 (PCR) Negative (Negative) <Ann Snyder DO - Last Filed: 04/16/23 15:07> Lab Data Labs: Lab Results 04/15/23 04/15/23 04/15/23 Range/Units 14:36 15:44 15:44 WBC 5.7 (4.5-11.0) X10^3/uL RBC 4.35 (4.0-5.2) X10^6/uL Hgb 13.3 (12.0-16.0) g/dL Hct 38.2 (36-46) % MCV 87.9 (80-100) fL MCH 30.5 (26-34) PG MCHC 34.7 (30-36) % RDW 12.6 (11.6-14.8) % Plt Count 229 (150-400) X10^3/uL Neut % (Auto) 57.3 (50-75) % Lymph % (Auto) 33.1 (25-40) % [place] % (Auto) 6.0 (3-14) % Eos % (Auto) 2.5 (2-4) % Baso % (Auto) 1.1 (0-2) % Neut # (Auto) 3300 (2576-8795) /uL Lymph # (Auto) 1900 (1112-6155) /uL [place] # (Auto) 300 (0-900) /uL Eos # (Auto) 100 (0-450) /uL Baso # (Auto) 100 (0-100) /uL PT 11.3 (9.4-12.5) SECONDS INR 1.0 (0.9-1.3) APTT 26 (25.1-36.5) SECONDS Sodium 138 (137-145) mmol/L Potassium 3.7 (3.4-5.1) mmol/L Chloride 107 (98-107) mmol/L Carbon Dioxide 22 (22-32) mmol/L BUN 11 (7-17) mg/dL Creatinine 0.84 (0.52-1.04) mg/dL Estimated GFR > 60 (>60) mL/min BUN/Creatinine Ratio 13.1 (6-22) Glucose 123 H (70-100) mg/dL Calcium 9.6 (8.4-10.2) mg/dL Magnesium 1.8 (1.6-2.3) mg/dL Total Bilirubin 0.7 (0.2-1.3) mg/dL AST 30 (14-36) IU/L ALT 30 (<35) IU/L Alkaline Phosphatase 37 L (38-126) U/L Total Protein 7.6 (6.3-8.2) g/dL Albumin 4.4 (3.5-5.0) g/dL Globulin 3.2 (1.7-4.1) g/dL Albumin/Globulin Ratio 1.4 (1.0-2.8) Lipase 82 (23-300) U/L TSH 2.33 (0.47-4.68) uIU/mL Serum , Qual Negative (Negative) Urine Color Yellow Urine Appearance Clear Urine pH 8.0 Normal (4.5-8.0) Ur Specific [place] 1.015 (1.000-1.035) Urine Protein Negative (Negative) Urine Glucose (UA) Negative (Negative) g/dL Urine Ketones Negative (NEGATIVE) Urine Occult Blood Negative (Negative) Urine Nitrate Negative (Negative) Urine Bilirubin Negative (NEGATIVE) Urine Urobilinogen 0.2 (0.2) E.U./dL Ur Leukocyte Esterase Negative (NEGATIVE) Urine RBC None seen (0-5/HPF) Urine WBC None seen (0-5/HPF) Ur Squamous Epith Cells None seen (0-5/HPF) Urine Bacteria None seen (None) Ur Culture Indicated? Cult not indicated Vol Urine Centrifuged 10ml (spun) Salicylates < 1.0 (<20) mg/dL U Opiates 300ng/mL cut Negative (Negative) Ur Oxycodone Screen Negative (Negative) Urine Methadone Screen Negative (Negative) Acetaminophen < 10 (10-30) ug/mL Ur Barbiturates Screen Negative (Negative) U Tricyclic Antidepress Negative (Negative) Ur Phencyclidine Scrn Negative (Negative) Ur Amphetamines Screen Negative (Negative) U Methamphetamines Scrn Negative (Negative) Ur MDMA Scrn (Ecstasy) Negative (Negative) U Benzodiazepines Scrn Negative (Negative) Urine Cocaine Screen Negative (Negative) U Marijuana (THC) Screen Negative (Negative) Urine Specific [place] Normal (Normal) Ethyl Alcohol < 10 ( - 10) mg/dL Ur Creatinine Normal (Normal) SARS-CoV-2 (PCR) Negative (Negative) MDM Narrative Medical decision making narrative: Patient is alert and oriented x3. Not clinically intoxicated. Is calm in the room and is cooperative with answering questions but certainly has a flat affect. She states she was trying to hang herself in order to kill herself. She does have bruising around her neck. No problems breathing. Does have some painful swallowing. There was no crepitus and no focal neurologic findings. Vital signs unremarkable. She has had multiple attempts at trying to kill herself in the past. CT scan of the neck shows what appears to be a right-sided internal jugular vein thrombosis. Unsure as to whether not this is related to the attempted hanging earlier today or an incidental finding. Attempted to contact Hematology/Oncology to discuss this finding and to discuss the need for anticoagulation. Had an extended period of time without any return of the page. Care turned over to Dr. Oliva at change of shift to follow-up and disposition. Patient is voluntary. Patient signed out to myself. She is continued to aspirin 325 mg daily does have a CTA of the neck that shows right-sided IJ thrombosis, this was reviewed with subspecialist I would recommend follow up in 6 weeks with continued aspirin 325 mg daily. Patient had an episode where she attempted to harm herself earlier here in the department last night. Patient ultimately was detained by [facility] and was a walk away. Bed was found at [facility] and is accepted for involuntary placement. Patient left department with EMS without event. Discharge Plan Departure Patient Disposition: Xfer [facility] Clinical Impression: Internal jugular vein thrombosis, Suicide attempt Prescriptions: No Action No Known Home Medications Referrals: Ruperto Onofre DO [Primary Care Provider] -
[2023-04-15 14:44] LABS: Add Manual Diff / Slide Review NO; Basophils Absolute Auto 100 /uL (0-100); Basophils Percent Auto 1.1 % (0-2); Eosinophils Absolute Auto 100 /uL (0-450); Eosinophils Percent Auto 2.5 % (2-4); Hematocrit 38.2 % (36-46); Hemoglobin 13.3 g/dL (12.0-16.0); Lymphocytes Absolute Auto 1900 /uL (1100-4500); Lymphocytes Percent Auto 33.1 % (25-40); Mean Corpuscular HGB Conc 34.7 % (30-36); Mean Corpuscular Hemoglobin 30.5 PG (26-34); Mean Corpuscular Volume 87.9 fL (80-100); Monocytes Absolute Auto 300 /uL (0-900); Neutrophils Absolute Auto 3300 /uL (1500-7000); Neutrophils Percent Auto 57.3 % (50-75); Platelet Count 229 X10^3/uL (150-400); Red Blood Cell Count 4.35 X10^6/uL (4.0-5.2); Red Cell Distribution Width 12.6 % (11.6-14.8); White Blood Cell Count 5.7 X10^3/uL (4.5-11.0)
[2023-04-15 14:51] LABS: Prothrombin Time 11.3 SECONDS (9.4-12.5)
[2023-04-15 14:53] LABS: PTT Partial Thromboplastin Tim 26 SECONDS (25.1-36.5)
[2023-04-15 14:56] LABS: Acetaminophen < 10 ug/mL (10-30); Alanine Aminotransferase 30 IU/L (<35); Albumin 4.4 g/dL (3.5-5.0); Albumin Globulin Ratio 1.4 (1.0-2.8); Alkaline Phosphatase 37 U/L (38-126); Aspartate Aminotransferase 30 IU/L (14-36); BUN Creatinine Ratio 13.1 (6-22); Bilirubin Total 0.7 mg/dL (0.2-1.3); Blood Urea Nitrogen 11 mg/dL (7-17); Calcium 9.6 mg/dL (8.4-10.2); Carbon Dioxide 22 mmol/L (22-32); Chloride 107 mmol/L (98-107); Estimated Glomerular Filt Rate > 60 mL/min (>60); Ethanol (ETOH) < 10 mg/dL; Globulin 3.2 g/dL (1.7-4.1); Glucose 123 mg/dL (70-100); HEMOLYSIS < 15 (0-50); Lipase 82 U/L (23-300); Magnesium 1.8 mg/dL (1.6-2.3); Potassium 3.7 mmol/L (3.4-5.1); Salicylate < 1.0 mg/dL (<20); Sodium 138 mmol/L (137-145); Total Protein 7.6 g/dL (6.3-8.2)
[2023-04-15 15:01] LABS: Pregnancy Test Serum,Qual Negative (Negative)
[2023-04-15 15:02] LABS: COVID19 -Nasal RAPID Negative (Negative)
[2023-04-15 15:34] LABS: Thyroid Stimulating Hormone 2.33 uIU/mL (0.47-4.68)
--- NOTE | 2023-04-15 15:43 | PC.NURSE ---
talking to primary RN
[2023-04-15 15:52] LABS: Appearance Urine UA CLEAR; Bilirubin Urine UA NEGATIVE (NEGATIVE); Color Urine UA YELLOW; Glucose Urine UA NEGATIVE (Negative); Ketones Urine UA NEGATIVE (NEGATIVE); Leukocyte Esterase Urine UA NEGATIVE (NEGATIVE); Nitrite Urine UA NEGATIVE (Negative); Occult Blood Urine UA NEGATIVE (Negative); Protein Urine UA NEGATIVE (Negative); Specific Gravity Urine UA 1.015 (1.000-1.035); Urobilinogen Urine UA 0.2 E.U./dL (0.2)
[2023-04-15 15:56] LABS: UR Morphine/Opiate cutoff 300 Negative (Negative); Ur Creatinine Normal (Normal); Ur Specific Gravity Normal (Normal); Urine Amphetamines Negative (Negative); Urine Barbiturates Negative (Negative); Urine Benzodiazepines Negative (Negative); Urine Cocaine Negative (Negative); Urine MDMA Negative (Negative); Urine Methadone Negative (Negative); Urine Methamphetamines Negative (Negative); Urine Oxycodone Negative (Negative); Urine Phencyclidine Negative (Negative); Urine Tetrahydrocannabinol Negative (Negative); Urine Tricyclic Antidepressant Negative (Negative); Urine pH Normal (Normal)
--- NOTE | 2023-04-15 15:58 | PC.NURSE ---
friend, Keisha at bedside.
[2023-04-15 16:11] LABS: Bacteria Urine None Seen; Culture Indicated Urine Cult Not Indicated; RBC Urine None Seen (0-5/HPF); Squamous Epithelial Cell Urine None Seen (0-5/HPF); Urine Volume 10mL (spun); WBC Urine None Seen (0-5/HPF)
--- NOTE | 2023-04-15 16:17 | PC.NURSE ---
laughing and talking with her friend, Keisha
--- NOTE | 2023-04-15 18:45 | PC.NURSE ---
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 pt does have a book to read.
--- NOTE | 2023-04-15 18:47 | PC.NURSE ---
Friend, Keisha reported that patient was texting multiple family members. She reported that her 17 year old daughter wants to kill herself now. Per Keisha, the 17 year old daughter is at home with her father. Primary Rn aware. I took her phone away and placed in the locked cabinet with her belongings.
[2023-04-15] MEDS: ACETAMINOPHEN 325 MG TABLET 650 MG PO (19:16)
--- NOTE | 2023-04-15 20:00 | PC.NURSE ---
reading her book
[2023-04-15] MEDS: ASPIRIN EC 325 MG TABLET PO (20:17)
--- NOTE | 2023-04-15 20:25 | PC.NURSE ---
Pt is now medically cleared per provider, I contacted [facility] and [facility] they do not have beds at this time. [facility] said they would review her packet and get back to us.
--- NOTE | 2023-04-15 20:27 | PC.NURSE ---
Ambulated patient to the restroom. I noticed her IV tape was lose and the cap of her iv was in her hand. I asked her if she unscrewed it. She said yes. I placed a new cap on the iv heplock and flushed it. A few minutes later, pt turned into bed, took off the iv cap, placed it under her book and was starting to bleed. on her clothes. I took out her Iv, applied a dressing. notified Dr. Oliva and POLO Mansfield of the event. Shyla and I cleaned her up and changed her bed linens and scrubs. pt is back to bed.
--- NOTE | 2023-04-15 21:03 | PC.NURSE ---
pt started to get agitated. placed the pillow over her face. asked her to remove the pillow from her face. pt declined. I then removed the pillow from her face. a few minutes later, pt got off the bed, disconnected wires, reported she had to use the restroom. I walked patient toward the restroom , she stopped in front of the ER doors and said she was leaving. I told her that she could not leave. Went to the bathroom with the patient. SERGER and RN removed her secured entrance monitor stickers and walked her to Room 13. water, juice and food offered to patient. Primary RN aware
--- NOTE | 2023-04-15 21:12 | PC.NURSE ---
emotional support to patient from multiple staff members.
--- NOTE | 2023-04-15 21:18 | PC.NURSE ---
Called [facility] to dispatch DCR for patient, due to active attempts in room, sitter actively preventing pt from harming self.
--- NOTE | 2023-04-15 21:23 | PC.NURSE ---
attempted to administer zyprexa as ordered, pt refused Dr Oliva informed with orders to hold for now
--- NOTE | 2023-04-15 21:30 | PC.NURSE ---
RUBY ENGINEER NOTE: patient is laying on bed, tearful, starring at the ceiling.
--- NOTE | 2023-04-15 21:55 | PC.NURSE ---
FUR MATCHER NOTE: pt c/o nausea, asked for emesis bag and one was provided. pt was asked to keep the bag visible while not in use, pt complied well to request.
--- NOTE | 2023-04-15 22:01 | PC.NURSE ---
pt is laying in bed crying and shaking, pt is occasionally gagging while crying.
--- NOTE | 2023-04-15 22:40 | PC.NURSE ---
DEBONE PROCESSING SUPERVISOR NOTE: when patient was done washing hands patient wiped her wet hands on the wall and laughed and told me to look at how the wall responded to that, its funny how is rolls down the wall
--- NOTE | 2023-04-15 22:48 | PC.NURSE ---
PRODUCTION ENGINEER NOTE: pt is reading her book
--- NOTE | 2023-04-15 23:26 | PC.NURSE ---
CIVIL DIVISION DEPUTY SHERIFF NOTE: pt is in a very talkative mood with care staff
--- NOTE | 2023-04-15 23:47 | PC.NURSE ---
pt is speaking with DCR
[2023-04-16] MEDS: ACETAMINOPHEN 325 MG TABLET 650 MG PO (00:55)
--- NOTE | 2023-04-16 01:16 | PC.NURSE ---
ASSISTANT PROFESSOR OF GEOGRAPHY NOTE: patient is appearing tearful after talking with DCR
[2023-04-16 01:41] VITALS: BP 115/74; PULSE 78; RESP 20; TEMP 36.6; O2SAT 97
--- NOTE | 2023-04-16 04:25 | PC.NURSE ---
pt asked to speak with nurse, She asked for another blanket the nurse said we could only allow one blanket in the room at a time. pt was unhappy with this response and started to cry and asked to call an employment attorney.
[2023-04-16 08:55] VITALS: BP 109/52; PULSE 84; RESP 18; O2SAT 98
--- NOTE | 2023-04-16 09:01 | PC.NURSE ---
woke pt up for vitals, offered breakfast tray again. Pt went back to sleep
--- NOTE | 2023-04-16 09:32 | PC.NURSE ---
pt awake requesting to call a friend
--- NOTE | 2023-04-16 09:36 | PC.NURSE ---
got report from MIRYAM batista and jessica; DCR was a walk away due no beds. [facility] said they can not accept out of pending sale to [facility] at night so i called this morning and faxed over packet; denise lawson said they still do not have beds; nick said they have beds however might not be able to take pt due to their observation rooms being full.
--- NOTE | 2023-04-16 09:45 | PC.NURSE ---
Patient awoke and eating breakfast and asked to speak with this RN. Patient informed this RN that she had bilateral numbness and tingling in her upper extremities. Patient states she had it since yesterday but didn't tell staff because I thought it would go away. Provider informed and new order given at this time.
--- NOTE | 2023-04-16 09:45 | PC.NURSE ---
pt eating breakfast
--- NOTE | 2023-04-16 10:01 | PC.NURSE ---
pt talking to friend Keisha on phone, seems happy and giggling
[2023-04-16] MEDS: ASPIRIN EC 325 MG TABLET PO (10:21)
--- NOTE | 2023-04-16 10:30 | PC.NURSE ---
pt is now calling sister Carli
--- NOTE | 2023-04-16 11:16 | PC.NURSE ---
pt laying in bed with her friend Marialuisa, tearful and giggling.
--- NOTE | 2023-04-16 11:53 | PC.NURSE ---
Lunch tray provided, Pts friend Marialuisa still in the room chatting
--- NOTE | 2023-04-16 12:23 | PC.NURSE ---
pt eating oreos that friend clare brought in
--- NOTE | 2023-04-16 13:32 | PC.NURSE ---
pt chatting with VAHID, friend Marialuisa also in room
[2023-04-16 13:42] VITALS: BP 107/55; PULSE 82; RESP 18; TEMP 36.8; O2SAT 99
--- NOTE | 2023-04-16 14:07 | CM.SWNOTE ---
FOREPART RASPER Note Patient arrives via EMS and LE due to concern for patient's SI and recent suicide attempt. Patient was found by police hanging self with stool below. DCR was dispatched yesterday and placement was not found so it was deemed a walkaway. FOREPART RASPER arrives to work and is informed that patient has been accepted by [facility] for [facility] placement. FOREPART RASPER calls [facility] and dispatches DCR to inform them of patient's acceptance. Todd DCR is assigned, Todd arrives with documentation and legal documents to detain patient and serves patient. [facility] arranges transport for patient to transfer to [facility] inpatient for 1410. Plan: patient to transfer to [facility] for JUNIE inpatient hospitalization this afternoon. Rochelle Lopes, PUMPER GAGER
--- NOTE | 2023-04-16 14:35 | PC.NURSE ---
[facility] here to transport pt to [facility]
== END 2023-04-16 14:37 ==
PROVIDERS: Emergency Medicine; Emergency Provider Emergency Medicine; PCP Chiropractor
DX: I82.C19 Acute embolism and thrombosis of unspecified internal jugular vein (principal); T14.91XA Suicide attempt, initial encounter; Z20.822 Contact with and (suspected) exposure to COVID-19
CPT/HCPCS: 70498; 80053; 80305; 80320; 80329; 81001; 83690; 83735; 84443; 84703; 85025; 85610; 85730; 87635; 93005; 93010; 99285; G0480; Q9967

== ENCOUNTER → 2024-05-22 17:05 | Outpatient (CLI) | payer OTHER, SELFPAY ==
--- NOTE | 2024-05-22 17:07 | DI.MG.S_ITS ---
MM screening mammo BI: 05/22/2024. BI-RADS: 1 CLINICAL: 44-year old female for bilateral screening mammogram. Tyrer-Cuzick lifetime risk of 11.4%. No personal or first-degree family history of breast cancer. PRIOR EXAMS 01/09/2023. MAMMOGRAPHY TECHNIQUE: 2D and 3D (tomosynthesis) digital mammographic views obtained, with additional images as needed for full coverage. Current study was also evaluated with a Computer Aided Detection (CAD) system. DENSITY D. The breasts are extremely dense, which lowers the sensitivity of mammography. MAMMOGRAPHY FINDINGS Bilateral: No suspicious mass, asymmetry, microcalcification, or other abnormality seen. IMPRESSION: * No evidence of malignancy. RECOMMENDATIONS Bilateral * Annual screening mammography. OVERALL ASSESSMENT CATEGORY BI-RADS-1: Negative. The [employer] recommends annual screening mammography beginning at age 40 for women with average risk of breast cancer. ELECTRONICALLY SIGNED: Dianna Ellis M.D. on 05/23/2024 at 10:19:00 AM PT Interpreting Station ID: [id number]
== END ==
PROVIDERS: PCP Chiropractor; Referring Provider Chiropractor; Visit Provider Nurse Practitioner Family
DX: Z12.39 Encounter for other screening for malignant neoplasm of breast (principal); R92.30 Dense breasts, unspecified
CPT/HCPCS: 77063; 77067

== ENCOUNTER 2024-08-30 20:00 | Emergency (ER) | payer OTHER, SELFPAY ==
[2024-08-30 20:06] VITALS: BP 111/81; PULSE 98; RESP 18; TEMP 36.7; O2SAT 98; BMI 32.1
[2024-08-30 22:43] VITALS: PULSE 89; O2SAT 98
[2024-08-30 22:44] VITALS: BP 117/70; PULSE 84; O2SAT 98
--- NOTE | 2024-08-30 22:50 | PC.NURSE ---
Pt brought to exam room at the same time as another patient. Mother had to wake pt in which he was very slow to do. RN to other room to assess that patient first. Within minutes RN back in to assess this pt. Pt lying flat on ED stretcher with snoring, unlabored respirations, difficult to arouse. Pt will answer 1 word responses with repeated questioning. VS stable at this time. No distress noted. Mother states she believes pt smoke marijuana and does meth but unsure when last use was. Pt does confirm no head injury when asked. Mother was in the vicinity when injury happened and confirms there was no fall or possible head injury. Dr. Gross made aware and at bedside.
[2024-08-30 23:00] VITALS: PULSE 78; O2SAT 97
[2024-08-30 23:01] VITALS: BP 101/65; PULSE 79; O2SAT 98
--- NOTE | 2024-08-30 23:09 | ED.NECK ---
HPI - Neck Pain/Injury General Chief Complaint: Neck Pain/Injury Stated Complaint: neck [id number], armpain, Nausea Time Seen by Provider: 08/30/24 23:09 Mode of arrival: Ambulatory History of Present Illness HPI Narrative: Patient is a 44-year-old female no significant past medical history presenting to the emergency department from home for evaluation of right-sided neck pain that started on Sunday upon wakening, she states that it is now feeling like it is going into her right shoulder in the right side of her back, states that the pain is starting to cause her to get nauseous. Did try to take ibuprofen without much relief. Denies any trauma or falls denies any numbness weakness tingling to the upper extremities no other symptoms such as headache visual disturbances chest pain shortness breath fever chills abdominal pain or any other GI/ symptoms time. Related Data Home Medications ?Medication ?Instructions ?Recorded ?Confirmed fluoxetine 20 mg capsule 20 mg PO DAILY 10/03/23 10/03/23 Previous Rx's ?Medication ?Instructions ?Recorded diazepam 2 mg tablet (Valium) 2 mg PO BID PRN muscle spasm 3 08/30/24 days #9 tabs lidocaine 5 % topical patch 1 patch topical DAILY 5 days #15 ea 08/30/24 methylprednisolone 4 mg tablets in See Rx Instructions PO .COMPLEX 08/30/24 a dose pack (Medrol (Michael)) #21 ea Allergies Allergy/AdvReac Type Severity Reaction Status Date / Time gluten Allergy Verified 08/30/24 20:06 Milk Containing Products Allergy Verified 08/30/24 20:06 (Dairy) meats Allergy Uncoded 08/30/24 20:06 Review of Systems Review of Systems Narrative: General: Denies fever, chills, weight loss HEENT: Positive neck pain Cardiovascular: Denies any chest pain, palpitations, tachycardia Respiratory: Denies any shortness of breath, cough, wheeze, stridor GI/: Denies any abdominal pain, nausea, vomiting, diarrhea, bright red blood per rectum, melanotic stools, urinary frequency, urinary retention, dysuria, hematuria MSK: Positive right arm pain Skin: Denies any rashes, lesions, discoloration Neuro: Denies any headache, lightheadedness, dizziness, fainting, weakness Psych: Denies SI/HI Patient History Medical History Celiac disease Surgical History History of hysterectomy Social History Smoking Status: Never smoker alcohol intake: current substance use type: does not use Smoking Status: Never smoker Exam Narrative Exam Narrative: General: Cooperative, well-developed, not in acute distress HEENT: Normocephalic, atraumatic, PERRLA, normal sclera, eyelids normal Neck: No tenderness to palpation of the midline spine, there is tenderness to palpation of the paraspinal muscles along the SCM, Chest: Normal to inspection, negative crepitus, no overlying erythema ecchymosis Respiratory: Normal respiratory effort, not in acute respiratory distress, clear to auscultation bilaterally negative cough, wheeze, tachypnea, rhonchi, rales Cardiology: Regular rate rhythm negative gallop, murmur, rubs GI/: No tenderness to palpation, soft, non rigid, normal to inspection, exam deferred MSK: Full active range of motion in all 4 extremities, atraumatic, no tenderness to palpation of any bony prominences, bilateral upper extremities are neurovascularly intact Skin: No rashes or lesions noted Neuro: Alert awake oriented x3, moves all 4 extremities spontaneously, cranial nerves intact, able to answer all questions appropriately follows commands appropriately Psych: Cooperative, negative suicidal or homicidal ideations Initial Vital Signs Initial Vital Signs: Vital Signs Temperature 98.1 F 08/30/24 20:06 Pulse Rate 98 H 08/30/24 20:06 Respiratory Rate 18 08/30/24 20:06 Blood Pressure 111/81 08/30/24 20:06 Pulse Oximetry 98 08/30/24 20:06 Oxygen Delivery Method Room Air 08/30/24 20:06 Course Vital Signs Vital signs: Vital Signs - 8 hr 08/30/24 20:06 08/30/24 22:50 Temperature 98.1 F Pulse Rate 98 H 78 Respiratory Rate 18 19 Blood Pressure 111/81 109/78 Pulse Oximetry 98 93 Oxygen Delivery Method Room Air Room Air MDM - Neck Pain/Injury Differential Diagnosis Differential diagnosis: Likely other (Muscle spasm, neck pain, neck strain) MDM Narrative Medical decision making narrative: Patient is a 44-year-old female without any significant past medical history presenting in the emergency department for home for evaluation of right neck/arm pain, states that she woke up on Sunday and started having muscle spasms to her right neck, states that she feels like it is now going to her upper back, no trauma no falls neurovascularly intact to bilateral upper extremities, no indication for imaging at this time, on exam tenderness to palpation of the paraspinal muscles along the SCM muscle. Patient was given 1st dose of medication here for symptomatic relief and was instructed follow up with primary care in outpatient setting she was given strict return precautions and verbalized understanding of this and agrees to being discharged home with outpatient follow up Discharge Plan Departure Patient Disposition: Home Clinical Impression: Cervical paraspinous muscle spasm Activity Restrictions/Additional Instructions: Please follow up with the primary care doctor Please read the discharge instructions sheet carefully and bring all papers to all doctor follow-up visits, as it may contain information that your doctor may want to see. Disease processes change and evolve, if your symptoms worsen or if you develop any new symptoms that are concerning to you please return for evaluation. Your evaluation today does not show any evidence of any life-threatening/serious illnesses requiring admission to the hospital or surgery. Please follow-up with your doctor for re-evaluation in approximately 1 day. Seek immediate medical attention for any worrisome symptoms. *If you do not have a primary care provider please contact the [facility] Resource line at [phone]. They will ask some questions about your medical history and help get you set up with a doctor in the community. Prescriptions: New diazepam [Valium] 2 mg tablet 2 mg PO BID PRN (Reason: muscle spasm) 3 Days Qty: 9 0RF lidocaine 5 % adhesive patch,medicated 1 patch topical DAILY 5 Days Qty: 15 0RF Rx Instructions: leave on most painful area for up to 12 hrs methylprednisolone [Medrol (Michael)] 4 mg tablets,dose pack See Rx Instructions .ROUTE .COMPLEX Qty: 21 0RF Rx Instructions: for 6 days No Action fluoxetine 20 mg capsule 20 mg PO DAILY Referrals: Ruperto Onofre DO [Primary Care Provider, Physical Medicine and Rehab] Stand Alone Forms: Patient Portal/API
[2024-08-30 23:30] VITALS: BP 97/69; PULSE 86; RESP 18; O2SAT 98
[2024-08-30] MEDS: KETOROLAC 30 MG/ML VIAL 15 MG IM (23:38)
[2024-08-30] MEDS: LIDOCAINE 5% PATCH 1 EACH TOP (23:38)
[2024-08-30] MEDS: diazePAM 2 MG TABLET PO (23:38)
[2024-08-30] MEDS: DEXAMETHASONE 10 MG/ML VIAL IM (23:39)
== END 2024-08-31 00:17 | disposition home or self-care (01) ==
PROVIDERS: Emergency Provider Student in an Organized Health Care Education/Training Program; PCP Chiropractor
DX: M62.838 Other muscle spasm (principal); R11.0 Nausea
CPT/HCPCS: 29105; 96372; 99283; J1100; J1885